=== PATIENT | female | born 1965 | race Caucasian/White ===

== ENCOUNTER 2019-03-19 13:05 | Emergency (ER) | payer OTHER ==
[2019-03-19 14:54] LABS: Absolute Lymphocytes (CBC) 1.4 K/uL (0.7-4.9); Basophils % 0.3 % (0-1.3); Eosinophils % 4.1 % (0-4.4); Lymphocytes % 15.8 % (15.3-44.8); MPV 8.6 fL (7.6-11.3); Monocytes % 6.4 % (3.3-12.3); Protime INR 1.04; RBC Red Blood Cell Count 4.01 M/uL (3.86-4.86)
[2019-03-19 15:06] LABS: BUN Blood Urea Nitrogen 11 mg/dL (7-18); Bicarbonate 25 mmol/L (21-32); Glucose Level 94 mg/dL (74-106); Potassium 3.7 mmol/L (3.5-5.1); Sodium Level 139 mmol/L (136-145)
[2019-03-19] MEDS ORDERED: ONDANSETRON 4 MG/2 ML VIAL ONE (15:09)
[2019-03-19] MEDS ORDERED: FENTANYL CITR 100 MCG/2 ML ONE (15:09)
[2019-03-19] MEDS ORDERED: BUPIVACAINE 0.5% PF 10 ML VIAL ONE (15:52)
[2019-03-19] MEDS ORDERED: LIDOCAINE 1% 20 ML MDV ONE (15:53)
--- NOTE | 2019-03-19 16:05 | EDPHYS ---
Physician Documentation [facility] Name: Shawnee Nazario Age: 53 yrs Sex: Female : 1965 Arrival Date: 03/19/2019 Time: 13:10 Bed 13 Private MD: ED Physician Humphrey Crawford HPI: 03/19 14:18 This 53 yrs old Female presents to ER via Ambulatory with complaints of Boil. cp 14:20 The patient presents with an abscess of the abdomen, The patient presents with cp cellulitis of the abdomen. Onset: The symptoms/episode began/occurred 2 week(s) ago. Possible cause(s): spider bite. Associated signs and symptoms: Pertinent positives: discharge, Pertinent negatives: fever. 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 - Social history:: Smoking status: Patient uses tobacco products, smokes one-half pack cigarettes per day. - Ebola Screening: : No symptoms or risks identified at this time. ROS: 14:23 Eyes: Negative for injury, pain, redness, and discharge. cp 14:23 Constitutional: Negative for body aches, chills, fever, poor PO intake. 14:23 ENT: Negative for drainage from ear(s), ear pain, sore throat, difficulty swallowing, difficulty handling secretions. 14:23 Cardiovascular: Negative for chest pain. 14:23 Respiratory: Negative for cough, shortness of breath, wheezing. 14:23 Abdomen/GI: Positive for abdominal pain, Negative for vomiting, diarrhea, constipation. 14:23 Skin: Positive for abscess, cellulitis, of the abdomen. 14:23 Neuro: Negative for altered mental status, headache, weakness. 14:23 All other systems are negative. Exam: 14:30 Constitutional: The patient appears in no acute distress, alert, awake, non-toxic, well cp developed, well nourished, uncomfortable. 14:30 Head/Face: Normocephalic, atraumatic. cp 14:30 Eyes: Periorbital structures: appear normal, Conjunctiva: normal, no exudate, no injection, Sclera: no appreciated abnormality, Lids and lashes: appear normal, bilaterally. 14:30 ENT: External ear(s): are unremarkable, Nose: is normal, Mouth: Lips: moist, Oral mucosa: pink and intact, moist, Posterior pharynx: is normal, airway is patent. 14:30 Chest/axilla: Inspection: normal, Palpation: is normal, no crepitus, no tenderness. 14:30 Cardiovascular: Rate: normal, Rhythm: regular. 14:30 Respiratory: the patient does not display signs of respiratory distress, Respirations: normal, no use of accessory muscles, no retractions, no splinting, no tachypnea, labored breathing, is not present, Breath sounds: are clear throughout, no decreased breath sounds, no stridor, no wheezing. 14:30 Abdomen/GI: Bowel sounds: active, all quadrants, Palpation: soft, in all quadrants, moderate abdominal tenderness, in the left lower quadrant, rebound tenderness, is not appreciated, voluntary guarding, is elicited in the left lower quadrant. 14:30 Skin: abscess, that is moderate sized, of the left lower abdomen, cellulitis, that is moderate, well demarcated, on the lower abdomen, induration, that is mild is noted, located on the left lower abdomen. Vital Signs: 13:14 BP 110 / 77; Pulse 97; Resp 18 S; Temp 98.5(O); Pulse Ox 100% on R/A; Weight 79.38 kg aa5 (R); Height 5 ft. 7 in. (170.18 cm) (R); Pain 9/10; 15:00 BP 116 / 72; Pulse 79; Resp 16; Pulse Ox 96% ; bp 16:12 BP 124 / 67; Pulse 81; Resp 16; Pulse Ox 99% on R/A; aj 13:14 Body Mass Index 27.41 (79.38 kg, 170.18 cm) aa5 Procedures: 16:00 I \T\ D: Incision and drainage was performed for an abscess of the left lower abdomen cp Prepped with Betadine, Anesthetized with 8 ccs of 1% lidocaine w/o epi and 0.5% marcaine w/o epi. Incised with #11 blade. Drained moderate amount purulent fluid. bloody fluid. Packed with iodoform gauze, Dressing: sterile 4x4 gauze, the patient tolerated the procedure well. MDM: 14:23 Patient medically screened. cp 15:00 Differential diagnosis: abscess, cellulitis, sepsis. cp 16:04 Data reviewed: vital signs, nurses notes, lab test result(s), and as a result, I will cp discharge patient. 16:04 Counseling: I had a detailed discussion with the patient and/or guardian regarding: the cp historical points, exam findings, and any diagnostic results supporting the discharge/admit diagnosis, radiology results, the need for outpatient follow up, a general surgeon, to return to the emergency department if symptoms worsen or persist or if there are any questions or concerns that arise at home. Response to treatment: the patient's symptoms have markedly improved after treatment, and as a result, I will discharge patient. 03/19 14:22 Order name: CBC with Diff; Complete Time: 15:37 cp 03/19 14:22 Order name: BMP; Complete Time: 15:37 cp 03/19 14:22 Order name: PT-INR; Complete Time: 15:37 cp 03/19 14:22 Order name: Procalcitonin; Complete Time: 15:37 cp 08 15:37 Interpretation: Reviewed. cp 03/19 14:22 Order name: Lactate; Complete Time: 15:37 cp 08 15:38 Interpretation: Reviewed. cp 03/19 16:01 Order name: Wound Culture bp 03/19 16:12 Order name: Urine Dipstick--Ancillary (enter results); Complete Time: 18:09 em1 03/19 16:12 Order name: Urine --Ancillary (enter results); Complete Time: 18:09 em1 03/19 14:22 Order name: Urine Dipstick-Ancillary (obtain specimen); Complete Time: 16:07 cp 03/19 14:22 Order name: Urine Test (obtain specimen); Complete Time: 16:07 cp 03/19 14:22 Order name: IV; Complete Time: 14:48 cp Administered Medications: 14:59 Drug: fentaNYL (PF) 25 mcg Route: IVP; Site: left antecubital; bp 16:41 Follow up: Response: Pain is decreased aj 14:59 Drug: Zofran 4 mg Route: IVP; Site: left antecubital; bp 16:41 Follow up: Response: Pain is decreased; Nausea is decreased aj 15:40 CANCELLED (Physician Discretion): Lidocaine (2 %) 1 mg Infiltration once; At IV or IO aj Insertion Site 16:01 Drug: Lidocaine (1 %) 10 mg Volume: 20 ml; Route: Infiltration; aj 16:01 Drug: Marcaine (0.5 %) 10 mg Volume: 10 ml; Route: Infiltration; aj 16:23 Drug: Clindamycin 900 mg Route: IM; Site: left gluteus; aj 16:41 Follow up: Response: No adverse reaction aj 16:23 Drug: Bactrim (160 mg-800 mg (DS) 1 tablet Route: PO; aj 16:41 Follow up: Response: No adverse reaction aj Disposition: 18:58 Co-signature as Attending Physician, Humphrey Crawford MD Available for consultation at ps1 all times . Disposition: 03/19/19 16:05 Discharged to Home. Impression: Cellulitis of abdominal wall, Cutaneous abscess of abdominal wall - left lower. - Condition is Stable. - Discharge Instructions: Skin Abscess, Cellulitis, Adult, Incision and Drainage. - Prescriptions for Clindamycin HCl 300 mg Oral Capsule - take 1 capsule by ORAL route every 6 hours for 10 days; 40 capsule. Tylenol- Codeine #3 300-30 mg Oral Tablet - take 2 tablets by ORAL route every 6 hours As needed; 20 tablet. Bactrim DS 800- 160 mg Oral Tablet - take 1 tablet by ORAL route every 12 hours for 10 days; 20 tablet. - Medication Reconciliation Form, Thank You Letter, Antibiotic Education, Prescription Opioid Use form. - Follow up: Pop Arroyo MD; When: 1 - 2 days; Reason: Wound Recheck. - Problem is new. - Symptoms have improved. Signatures: Dispatcher [employer] Mari Menjivar RN RN aj Calderon, Audri RN RN aa5 Danny Dennis PA PA cp Peltier, Brian, RN RN bp Singer, Phillip, MD MD ps1 Corrections: (The following items were deleted from the chart) 15:40 15:40 Lidocaine (2 %) 1 mg Infiltration once; At IV or IO Insertion Site ordered. aj aj 16:43 16:05 03/19/2019 16:05 Discharged to Home. Impression: Cellulitis of abdominal wall; aj Cutaneous abscess of abdominal wall - left lower. Condition is Stable. Forms are Medication Reconciliation Form, Thank You Letter, Antibiotic Education, Prescription Opioid Use. Follow up: Pop Arroyo; When: 1 - 2 days; Reason: Wound Recheck. Problem is new. Symptoms have improved. cp 03/20 15:00 03/19 14:00 I \T\ D: Incision and drainage was performed for an abscess of the left lower cp abdomen Prepped with Betadine, Anesthetized with 8 ccs of 50/50 mixture 1% lidocaine w/o epi and 0.5% marcaine. Incised with #11 blade. Drained moderate amount purulent fluid. bloody fluid. Cultures obtained. Packed with iodoform gauze, Dressing: sterile 4x4 gauze, the patient tolerated the procedure well, cp
--- NOTE | 2019-03-19 16:05 | ER ---
Nurse's Notes [facility] Name: Shawnee Nazario Age: 53 yrs Sex: Female : 1965 Arrival Date: 03/19/2019 Time: 13:10 Bed 13 Private MD: Diagnosis: Cellulitis of abdominal wall;Cutaneous abscess of abdominal wall-left lower Presentation: 03/19 13:13 Presenting complaint: Patient states: "I have some spider bites on my abdomen and I let aa5 it get too bad now". Pt c/o redness to lower abdomen, reports bites occurred 2 weeks ago. Transition of care: patient was not received from another setting of care. Onset of symptoms was 2018. Risk Assessment: Do you want to hurt yourself or someone else? Patient reports no desire to harm self or others. Initial Sepsis Screen: Does the patient meet any 2 criteria? No. Patient's initial sepsis screen is negative. Does the patient have a suspected source of infection? No. Patient's initial sepsis screen is negative. Care prior to arrival: None. 13:13 Method Of Arrival: Ambulatory aa5 13:13 Acuity: PAUL 3 aa5 Triage Assessment: 14:15 General: Appears in no apparent distress. comfortable, Behavior is cooperative, bp appropriate for age, anxious. 14:15 Pain: Complains of pain in abdomen. EENT: No deficits noted. Neuro: No deficits noted. bp Cardiovascular: No deficits noted. Respiratory: No deficits noted. GI: No signs and/or symptoms were reported involving the gastrointestinal system. : No signs and/or symptoms were reported regarding the genitourinary system. Derm: Abscess located on abdomen. Musculoskeletal: No deficits noted. 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 - Social history:: Smoking status: Patient uses tobacco products, smokes one-half pack cigarettes per day. - Ebola Screening: : No symptoms or risks identified at this time. Screenin:16 Abuse screen: Denies threats or abuse. Denies injuries from another. Nutritional bp screening: No deficits noted. Tuberculosis screening: No symptoms or risk factors identified. Fall Risk None identified. Assessment: 14:16 General: SEE TRIAGE NOTE. bp 16:12 Reassessment: No changes from previously documented assessment. aj Vital Signs: 13:14 BP 110 / 77; Pulse 97; Resp 18 S; Temp 98.5(O); Pulse Ox 100% on R/A; Weight 79.38 kg aa5 (R); Height 5 ft. 7 in. (170.18 cm) (R); Pain 9/10; 15:00 BP 116 / 72; Pulse 79; Resp 16; Pulse Ox 96% ; bp 16:12 BP 124 / 67; Pulse 81; Resp 16; Pulse Ox 99% on R/A; aj 13:14 Body Mass Index 27.41 (79.38 kg, 170.18 cm) aa5 ED Course: 13:10 Patient arrived in ED. rg4 13:13 Arm band placed on. aa5 13:14 Triage completed. aa5 14:05 Dale Garcia, VENKAT is Primary Nurse. bp 14:10 Danny Dennis PA is PHCP. cp 14:10 Humphrey Crawford MD is Attending Physician. cp 14:16 Patient has correct armband on for positive identification. Bed in low position. Call bp light in reach. Side rails up X2. 14:30 Inserted saline lock: 22 gauge in left antecubital area, using aseptic technique. Blood bp collected. 16:04 Pop Arroyo MD is Referral Physician. cp 16:42 No provider procedures requiring assistance completed. IV discontinued, intact, aj bleeding controlled, No redness/swelling at site. Pressure dressing applied. Administered Medications: 14:59 Drug: fentaNYL (PF) 25 mcg Route: IVP; Site: left antecubital; bp 16:41 Follow up: Response: Pain is decreased aj 14:59 Drug: Zofran 4 mg Route: IVP; Site: left antecubital; bp 16:41 Follow up: Response: Pain is decreased; Nausea is decreased aj 15:40 CANCELLED (Physician Discretion): Lidocaine (2 %) 1 mg Infiltration once; At IV or IO aj Insertion Site 16:01 Drug: Lidocaine (1 %) 10 mg Volume: 20 ml; Route: Infiltration; aj 16:01 Drug: Marcaine (0.5 %) 10 mg Volume: 10 ml; Route: Infiltration; aj 16:23 Drug: Clindamycin 900 mg Route: IM; Site: left gluteus; aj 16:41 Follow up: Response: No adverse reaction aj 16:23 Drug: Bactrim (160 mg-800 mg (DS) 1 tablet Route: PO; aj 16:41 Follow up: Response: No adverse reaction aj Outcome: 16:05 Discharge ordered by . cindi 16:42 Discharged to home ambulatory. aj 16:42 Condition: good 16:42 Discharge instructions given to patient, Instructed on discharge instructions, follow up and referral plans. medication usage, Demonstrated understanding of instructions, follow-up care, medications, Prescriptions given X 3. 16:43 Patient left the ED. aj Signatures: Mari Andrade, RN RN Denice Garza, RN RN aa5 Danny Dennis PA PA cp Garcia, Rubi rg4 Dale Garcia RN RN bp
[2019-03-19] MEDS ORDERED: SMZ./TMP. 800/160 MG TABLET ONE (16:33)
[2019-03-19] MEDS ORDERED: CLINDAMYCIN IV 150 MG/ML (4 mL) VIAL ONE (16:34)
[2019-03-19 17:21] LABS: Urine Blood NEGATIVE (NEG); Urine Glucose NEGATIVE (NEG); Urine Protein TRACE (NEG); Urine Specific Gravity >1.030 (1.005-1.030); Urine pH 5.5 (5.0-7.0)
[2019-03-19 18:03] VITALS: TEMP 98.5
[2019-03-19 18:05] VITALS: BP 124/67; O2SAT 99
== END 2019-03-19 16:43 | disposition home or self-care (01) ==
LOC: ER 13:05
PROC: 0J980ZZ Drainage of Abdomen Subcutaneous Tissue and Fascia, Open Approach (ICD-10-PCS; principal; 2019-03-19)
DX: L02.211 Cutaneous abscess of abdominal wall (principal); L03.311 Cellulitis of abdominal wall; F41.9 Anxiety disorder, unspecified; F31.9 Bipolar disorder, unspecified; F32.9 Major depressive disorder, single episode, unspecified; F17.210 Nicotine dependence, cigarettes, uncomplicated; Z88.0 Allergy status to penicillin
CPT/HCPCS: 36415; 80048; 81003; 81025; 83605; 84145; 85025; 85610; 87070; 87077; 87186; 87205; 96372; 96374; 96375; 99284; J2405; J3010; S0077

== ENCOUNTER 2020-02-07 09:16 | Emergency (ER) | payer OTHER ==
--- OUTSIDE RECORDS SUMMARY | 2020-02-07 10:29 | XMS REPORT ---
:1965 Author Organization [facility] t Address [address] [place] [address] Care Team Providers Name Role Phone Unavailable Unavailable Unavailable Problems This patient has no known problems. Allergies, Adverse Reactions, Alerts This patient has no known allergies or adverse reactions. Medications This patient has no known medications. Procedures This patient has no known procedures. Results This patient has no known results.
[2020-02-07] MEDS ORDERED: LIDOCAINE 1% MPF 2 ML AMPULE ONE (10:41)
[2020-02-07] MEDS ORDERED: AZITHROMYCIN 250 MG TAB ONE (10:41)
[2020-02-07] MEDS ORDERED: FLUCONAZOLE 100 MG TAB ONE (10:41)
[2020-02-07] MEDS ORDERED: CEFTRIAXONE 250 MG/VIAL ONE (10:41)
[2020-02-07 11:07] LABS: Urine Blood NEGATIVE (NEG); Urine Glucose NEGATIVE (NEG); Urine Protein NEGATIVE (NEG); Urine Specific Gravity >1.030 (1.005-1.030)
[2020-02-07 11:33] VITALS: BP 148/88; TEMP 97.9; O2SAT 100
--- NOTE | 2020-02-11 15:44 | ER ---
Nurse's Notes [facility] Name: Shawnee Nazario Age: 54 yrs Sex: Female : 1965 Arrival Date: 02/07/2020 Time: 09:19 Bed 8 Private MD: Dino Mandujano E Diagnosis: Acute suppurative otitis media;Vaginitis, vulvitis and vulvovaginitis in diseases classified elsewhere Presentation: 02/06 09:41 Chief complaint: Right ear pain x 2 days. Also c/o vaginal itching + increased hb discharge x 4 days. Coronavirus screen: Proceed with normal triage. Ebola Screen: No symptoms or risks identified at this time. Initial Sepsis Screen: Does the patient meet any 2 criteria? No. Patient's initial sepsis screen is negative. Does the patient have a suspected source of infection? No. Patient's initial sepsis screen is negative. Risk Assessment: Do you want to hurt yourself or someone else? Patient reports no desire to harm self or others. Onset of symptoms was February 03, 2020. 09:41 Method Of Arrival: Ambulatory hb 09:41 Acuity: PAUL 4 hb Historical: - Allergies: 09:44 Amoxicillin; hb 09:44 PENICILLINS; hb - Home Meds: 09:44 hydrocodone-acetaminophen 10-325 mg Oral tab 1 tab every 4 hours [Active]; Paxil Oral hb [Active]; - PMHx: 09:44 Bipolar disorder; Depression; insomnia; PTSD; Anxiety; hb - PSHx: 09:44 ; hb - Immunization history:: Adult Immunizations up to date. - Social history:: Smoking status: Patient reports the use of cigarette tobacco products, smokes one-half pack cigarettes per day. Screenin:16 Abuse screen: Denies threats or abuse. Denies injuries from another. Nutritional sv screening: No deficits noted. Tuberculosis screening: No symptoms or risk factors identified. Fall Risk None identified. Assessment: 10:45 General: Appears in no apparent distress. comfortable, well developed, Behavior is sv calm, cooperative, appropriate for age. Pain: Complains of pain in right ear. Neuro: Level of Consciousness is awake, alert, obeys commands, Oriented to person, place, time, situation, Moves all extremities. Full function Gait is steady. Respiratory: Airway is patent Respiratory effort is even, unlabored, Respiratory pattern is regular, symmetrical. : Reports discharge, vaginal itching. EENT: Reports pain in right ear. Derm: Skin is pink, warm \T\ dry. 11:00 Reassessment: Patient appears in no apparent distress at this time. No changes from sv previously documented assessment. Patient and/or family updated on plan of care and expected duration. Pain level reassessed. Patient is alert, oriented x 3, equal unlabored respirations, skin warm/dry/pink. Vital Signs: 09:41 BP 148 / 88; Pulse 86; Resp 16; Temp 97.9; Pulse Ox 100% on R/A; Weight 86.18 kg; hb Height 5 ft. 7 in. (170.18 cm); Pain 2/10; 09:41 Body Mass Index 29.76 (86.18 kg, 170.18 cm) hb ED Course: 09:19 Patient arrived in ED. mr 09:19 Dino Mandujano MD is Private Physician. mr 09:43 Triage completed. hb 09:44 Arm band placed on. hb 10:08 Shanti King RN is Primary Nurse. sv 10:08 Anjel Hussein PA is PHCP. jr8 10:08 Kevin Roth MD is Attending Physician. jr8 10:16 Patient has correct armband on for positive identification. Bed in low position. Call sv light in reach. Door closed. Head of bed elevated. 10:41 Dino Mandujano MD is Referral Physician. jr8 10:50 Urine collected: clean catch specimen, cloudy. sv 10:51 No provider procedures requiring assistance completed. Patient did not have IV access sv during this emergency room visit. Administered Medications: 10:40 Drug: Rocephin (cefTRIAXone) 250 mg Route: IM; Site: right gluteus; sv 11:00 Follow up: Response: No adverse reaction sv 10:40 Drug: Zithromax 1 grams Route: PO; sv 11:00 Follow up: Response: No adverse reaction sv 10:40 Drug: DiFLUcan 150 mg Route: PO; sv 11:00 Follow up: Response: No adverse reaction sv Outcome: 10:42 Discharge ordered by . jr8 11:00 Patient left the ED. sv 11:00 Discharged to home ambulatory. sv 11:00 Condition: stable 11:00 Discharge instructions given to patient, Instructed on discharge instructions, follow up and referral plans. medication usage, Demonstrated understanding of instructions, follow-up care, medications, Prescriptions given X 1. Signatures: Shanti King RN Kinjal Paulson Josh, PA PA jr8 Rosalee Hassan RN RN Corrections: (The following items were deleted from the chart) 11:42 11:24 Patient left the ED. sv
--- NOTE | 2020-02-11 15:44 | EDPHYS ---
Physician Documentation [facility] Name: Shawnee Nazario Age: 54 yrs Sex: Female : 1965 Arrival Date: 02/07/2020 Time: 09:19 Bed 8 Private MD: Dino Mandujano E ED Physician Kevin Roth HPI: 02/06 10:28 This 54 yrs old Female presents to ER via Ambulatory with complaints of Ear jr8 Pain/Vaginal discharge. 10:28 Patient stated that she has had a couple days of ear pain. Took Abx from her friend nick that has helped. Stated that for the past couple of days has also had vaginal discharge with some mild itching. Sexually active . Severity of symptoms: At their worst the symptoms were mild in the emergency department the symptoms are unchanged. The patient has not experienced similar symptoms in the past. The patient has not recently seen a physician. Historical: - Allergies: 09:44 Amoxicillin; hb 09:44 PENICILLINS; hb - Home Meds: 09:44 hydrocodone-acetaminophen 10-325 mg Oral tab 1 tab every 4 hours [Active]; Paxil Oral hb [Active]; - PMHx: 09:44 Bipolar disorder; Depression; insomnia; PTSD; Anxiety; hb - PSHx: 09:44 ; hb - Immunization history:: Adult Immunizations up to date. - Social history:: Smoking status: Patient reports the use of cigarette tobacco products, smokes one-half pack cigarettes per day. ROS: 10:39 Eyes: Negative for injury, pain, redness, and discharge, Neck: Negative for injury, jr8 pain, and swelling, Cardiovascular: Negative for chest pain, palpitations, and edema, Respiratory: Negative for shortness of breath, cough, wheezing, and pleuritic chest pain, Abdomen/GI: Negative for abdominal pain, nausea, vomiting, diarrhea, and constipation, Back: Negative for injury and pain, MS/Extremity: Negative for injury and deformity, Skin: Negative for injury, rash, and discoloration, Neuro: Negative for headache, weakness, numbness, tingling, and seizure. 10:39 ENT: Positive for ear pain. 10:39 : Positive for vaginal discharge, vaginal itching. Exam: 10:39 Head/Face: Normocephalic, atraumatic. Eyes: Pupils equal round and reactive to light, jr8 extra-ocular motions intact. Lids and lashes normal. Conjunctiva and sclera are non-icteric and not injected. Cornea within normal limits. Periorbital areas with no swelling, redness, or edema. Neck: Trachea midline, no thyromegaly or masses palpated, and no cervical lymphadenopathy. Supple, full range of motion without nuchal rigidity, or vertebral point tenderness. No Meningismus. Cardiovascular: Regular rate and rhythm with a normal S1 and S2. No gallops, murmurs, or rubs. Normal PMI, no JVD. No pulse deficits. Respiratory: Lungs have equal breath sounds bilaterally, clear to auscultation and percussion. No rales, rhonchi or wheezes noted. No increased work of breathing, no retractions or nasal flaring. Abdomen/GI: Soft, non-tender, with normal bowel sounds. No distension or tympany. No guarding or rebound. No evidence of tenderness throughout. Back: No spinal tenderness. No costovertebral tenderness. Full range of motion. Skin: Warm, dry with normal turgor. Normal color with no rashes, no lesions, and no evidence of cellulitis. MS/ Extremity: Pulses equal, no cyanosis. Neurovascular intact. Full, normal range of motion. Neuro: Awake and alert, GCS 15, oriented to person, place, time, and situation. Cranial nerves II-XII grossly intact. Motor strength 5/5 in all extremities. Sensory grossly intact. Cerebellar exam normal. Normal gait. 10:39 ENT: External ear(s): are unremarkable, Ear canal(s): are normal, clear, TM's: dullness, on the right, erythema, that is mild, on the right, Examination of the other ear shows no obvious abnormality, Nose: External nose: no obvious acute abnormality, Nasal septum: is midline, Nasal mucosa: normal, Turbinates: are normal, Examination of the other nostril shows no obvious abnormality, Mouth: Lips: moist, Oral mucosa: pink and intact, moist, Gums: pink, Tongue: is moist, Posterior pharynx: Airway: patent, Tonsils: are normal in appearance, Uvula: midline, non-edematous, no erythema, swelling, is not appreciated, erythema, is not appreciated. Vital Signs: 09:41 BP 148 / 88; Pulse 86; Resp 16; Temp 97.9; Pulse Ox 100% on R/A; Weight 86.18 kg; hb Height 5 ft. 7 in. (170.18 cm); Pain 2; 09:41 Body Mass Index 29.76 (86.18 kg, 170.18 cm) hb MDM: 10:08 Patient medically screened. jr8 10:39 Data reviewed: vital signs, nurses notes, lab test result(s). Data interpreted: Pulse jr8 oximetry: on room air is 100 %. Interpretation: normal. Counseling: I had a detailed discussion with the patient and/or guardian regarding: the historical points, exam findings, and any diagnostic results supporting the discharge/admit diagnosis, lab results, the need for outpatient follow up, a family practitioner, to return to the emergency department if symptoms worsen or persist or if there are any questions or concerns that arise at home. 02/06 10:53 Order name: Urine Dipstick--Ancillary (enter results); Complete Time: 16:22 bd 02/06 10:27 Order name: Urine Dipstick-Ancillary (obtain specimen); Complete Time: 10:50 jr8 Administered Medications: 10:40 Drug: Rocephin (cefTRIAXone) 250 mg Route: IM; Site: right gluteus; sv 11:00 Follow up: Response: No adverse reaction sv 10:40 Drug: Zithromax 1 grams Route: PO; sv 11:00 Follow up: Response: No adverse reaction sv 10:40 Drug: DiFLUcan 150 mg Route: PO; sv 11:00 Follow up: Response: No adverse reaction sv Disposition: 02/07/20 10:42 Discharged to Home. Impression: Acute suppurative otitis media, Vaginitis, vulvitis and vulvovaginitis in diseases classified elsewhere. - Condition is Stable. - Discharge Instructions: Otitis Media, Adult, Vaginitis. - Prescriptions for Bactrim DS 800- 160 mg Oral Tablet - take 1 tablet by ORAL route every 12 hours for 7 days; 14 tablet. - Medication Reconciliation Form, Thank You Letter, Antibiotic Education, Prescription Opioid Use form. - Follow up: Dino Mandujano MD; When: 5 - 6 days; Reason: Recheck today's complaints, Continuance of care, Re-evaluation by your physician. - Problem is new. - Symptoms have improved. Addendum: 02/09/2020 07:50 Co-signature as Attending Physician, Kevin Roth MD I agree with the assessment and k dr plan of care. Signatures: Dispatcher [employer] Shanti Olson, RN RN Kevin Wagner MD MD [facility] Anjel Hussein PA PA jr8 Rosalee Hassan RN RN Corrections: (The following items were deleted from the chart) 02/06 11:24 10:42 02/07/2020 10:42 Discharged to Home. Impression: Acute suppurative otitis media; sv Vaginitis, vulvitis and vulvovaginitis in diseases classified elsewhere. Condition is Stable. Forms are Medication Reconciliation Form, Thank You Letter, Antibiotic Education, Prescription Opioid Use. Follow up: Dino Mandujano; When: 5 - 6 days; Reason: Recheck today's complaints, Continuance of care, Re-evaluation by your physician. Problem is new. Symptoms have improved. jr8
[2020-02-13 14:39] LABS: C.trachomatis RNA,TMA Not Detected (Not Detected)
== END 2020-02-07 11:24 | disposition home or self-care (01) ==
LOC: ER 09:16
DX: H66.001 Acute suppurative otitis media without spontaneous rupture of ear drum, right ear (principal); N77.1 Vaginitis, vulvitis and vulvovaginitis in diseases classified elsewhere; F31.9 Bipolar disorder, unspecified; Z88.0 Allergy status to penicillin; Z88.1 Allergy status to other antibiotic agents; F17.210 Nicotine dependence, cigarettes, uncomplicated
CPT/HCPCS: 81003; 96372; 99283; J2001; J0696; 87070

== ENCOUNTER 2020-06-25 10:34 | Emergency (ER) | payer OTHER ==
--- OUTSIDE RECORDS SUMMARY | 2020-06-25 10:37 | XMS REPORT | Continuity of Care Document ---
:1965 Author Organization [facility] t Address [address] [place] [id number] Care Team Providers Name Role Phone Unavailable Unavailable Unavailable Problems This patient has no known problems. Allergies, Adverse Reactions, Alerts This patient has no known allergies or adverse reactions. Medications This patient has no known medications. Procedures This patient has no known procedures. Results This patient has no known results.
--- OUTSIDE RECORDS SUMMARY | 2020-06-25 10:43 | XMS REPORT | Continuity of Care Document ---
:1965 Author Organization [facility] t Address [address] [place] [id number] Care Team Providers Name Role Phone Unavailable Unavailable Unavailable Problems This patient has no known problems. Allergies, Adverse Reactions, Alerts This patient has no known allergies or adverse reactions. Medications This patient has no known medications. Procedures This patient has no known procedures. Results This patient has no known results.
[2020-06-25] MEDS ORDERED: KETOROLAC 30 MG/ML INJ ONE (11:48)
--- NOTE | 2020-06-25 12:04 | ER ---
Nurse's Notes [facility] Name: Shawnee Nazario Age: 54 yrs Sex: Female : 1965 Arrival Date: 06/25/2020 Time: 10:43 Bed 17 Private MD: Diagnosis: Low back pain;Lateral epicondylitis, right elbow Presentation: 06/25 10:46 Chief complaint: Right elbow and low back pain after she rolled off bed onto carpet 2 hb days ago. Coronavirus screen: At this time, the client does not indicate any symptoms associated with coronavirus-19. Ebola Screen: No symptoms or risks identified at this time. Initial Sepsis Screen: Does the patient meet any 2 criteria? No. Patient's initial sepsis screen is negative. Does the patient have a suspected source of infection? No. Patient's initial sepsis screen is negative. Risk Assessment: Do you want to hurt yourself or someone else? Patient reports no desire to harm self or others. Onset of symptoms was June 23, 2020. 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 - Social history:: Smoking status: Patient reports the use of cigarette tobacco products, smokes one-half pack cigarettes per day. Screenin:04 Abuse screen: Denies threats or abuse. Denies injuries from another. Nutritional hb screening: No deficits noted. Tuberculosis screening: No symptoms or risk factors identified. Fall Risk None identified. Assessment: 11:30 General: Appears in no apparent distress. uncomfortable, Behavior is calm, cooperative, em appropriate for age, Denies fever. Pain: Complains of pain in lumbar area and right elbow Pain currently is 6 out of 10 on a pain scale. Pain began 2-3 days ago. Neuro: Level of Consciousness is awake, alert, obeys commands, Oriented to person, place, time, situation, Appropriate for age Oral Hygienist are equal bilaterally Moves all extremities. Gait is steady, Speech is normal, Facial symmetry appears normal. Cardiovascular: Capillary refill < 3 seconds Patient's skin is warm and dry. Respiratory: Airway is patent Respiratory effort is even, unlabored, Respiratory pattern is regular, symmetrical. Derm: Skin is intact, is healthy with good turgor, Skin is pink, warm \T\ dry. Musculoskeletal: Capillary refill < 3 seconds, Range of motion: intact in all extremities. Vital Signs: 10:46 BP 119 / 79; Pulse 80; Resp 16; Temp 98.1; Pulse Ox 100% on R/A; Weight 90.72 kg; hb Height 5 ft. 7 in. (170.18 cm); Pain 6/10; 10:46 Body Mass Index 31.32 (90.72 kg, 170.18 cm) hb ED Course: 10:43 Patient arrived in ED. ds1 10:43 Kevin Roth MD is Attending Physician. kdr 10:46 Jose Johnson, RN is Primary Nurse. em 11:01 Triage completed. hb 11:02 Arm band placed on. hb 11:08 Anjel Hussein PA is PHCP. jr8 12:11 No provider procedures requiring assistance completed. Patient did not have IV access ss during this emergency room visit. Administered Medications: 11:44 Drug: TORadol 60 mg Route: IM; Site: left gluteus; em Outcome: 12:04 Discharge ordered by . jr8 12:11 Discharged to home ambulatory, with family. ss 12:11 Condition: good 12:11 Discharge instructions given to patient, family, Instructed on discharge instructions, follow up and referral plans. medication usage, Demonstrated understanding of instructions, follow-up care, medications, Prescriptions given X 3. 12:11 Patient left the ED. ss Signatures: Kevin Roth MD MD [facility] Jose Johnson, VENKAT RN Sarah Sarah ds1 Diana Farrell RN RN Anjel Hussein PA PA jr8 Rosalee Hassan RN RN hb
--- NOTE | 2020-06-25 12:04 | EDPHYS ---
Physician Documentation [facility] Name: Shawnee Nazario Age: 54 yrs Sex: Female : 1965 Arrival Date: 06/25/2020 Time: 10:43 Bed 17 Private MD: ED Physician Kevin Roth HPI: 06/25 13:09 This 54 yrs old Female presents to ER via Ambulatory with complaints of Fall jr8 Injury Back Pain. 13:09 Patient stated that she fell out of bed landing on back and right elbow. Has had pain jr8 since then which is not relieved by OTC medications . Onset: The symptoms/episode began/occurred acutely, 2 day(s) ago. Severity of symptoms: At their worst the symptoms were mild in the emergency department the symptoms are unchanged. The patient has not experienced similar symptoms in the past. The patient has not recently seen a physician. 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 - Social history:: Smoking status: Patient reports the use of cigarette tobacco products, smokes one-half pack cigarettes per day. ROS: 13:09 Eyes: Negative for injury, pain, redness, and discharge, ENT: Negative for injury, jr8 pain, and discharge, Neck: Negative for injury, pain, and swelling, Cardiovascular: Negative for chest pain, palpitations, and edema, Respiratory: Negative for shortness of breath, cough, wheezing, and pleuritic chest pain, Abdomen/GI: Negative for abdominal pain, nausea, vomiting, diarrhea, and constipation, Skin: Negative for injury, rash, and discoloration, Neuro: Negative for headache, weakness, numbness, tingling, and seizure. 13:09 Back: Positive for pain at rest, pain with movement, Negative for radiated pain. 13:09 MS/extremity: Positive for pain, tenderness, of the right elbow. Exam: 13:09 Eyes: Pupils equal round and reactive to light, extra-ocular motions intact. Lids and jr8 lashes normal. Conjunctiva and sclera are non-icteric and not injected. Cornea within normal limits. Periorbital areas with no swelling, redness, or edema. ENT: Nares patent. No nasal discharge, no septal abnormalities noted. Tympanic membranes are normal and external auditory canals are clear. Oropharynx with no redness, swelling, or masses, exudates, or evidence of obstruction, uvula midline. Mucous membranes moist. Neck: Trachea midline, no thyromegaly or masses palpated, and no cervical lymphadenopathy. Supple, full range of motion without nuchal rigidity, or vertebral point tenderness. No Meningismus. Cardiovascular: Regular rate and rhythm with a normal S1 and S2. No gallops, murmurs, or rubs. Normal PMI, no JVD. No pulse deficits. Respiratory: Lungs have equal breath sounds bilaterally, clear to auscultation and percussion. No rales, rhonchi or wheezes noted. No increased work of breathing, no retractions or nasal flaring. Abdomen/GI: Soft, non-tender, with normal bowel sounds. No distension or tympany. No guarding or rebound. No evidence of tenderness throughout. Skin: Warm, dry with normal turgor. Normal color with no rashes, no lesions, and no evidence of cellulitis. Neuro: Awake and alert, GCS 15, oriented to person, place, time, and situation. Cranial nerves II-XII grossly intact. Motor strength 5/5 in all extremities. Sensory grossly intact. Cerebellar exam normal. Normal gait. 13:09 Back: pain, that is moderate, of the left low back, ROM is painful, normal spinal alignment noted, CVA tenderness, is absent, vertebral tenderness, is not appreciated. 13:09 Musculoskeletal/extremity: Extremities: grossly normal except: noted in the right elbow: pain, tenderness, ROM: intact in all extremities, full active range of motion, full passive range of motion, limited active range of motion due to pain, limited passive range of motion due to pain, Circulation is intact in all extremities. Sensation intact. Patient with point tenderness over the lateral epicondyle region of arm . Vital Signs: 10:46 BP 119 / 79; Pulse 80; Resp 16; Temp 98.1; Pulse Ox 100% on R/A; Weight 90.72 kg; hb Height 5 ft. 7 in. (170.18 cm); Pain 6/10; 10:46 Body Mass Index 31.32 (90.72 kg, 170.18 cm) hb MDM: 11:35 Patient medically screened. jr8 12:03 Data reviewed: vital signs, nurses notes, and as a result, I will discharge patient. jr8 Data interpreted: Pulse oximetry: on room air is 100 %. Interpretation: normal. Counseling: I had a detailed discussion with the patient and/or guardian regarding: the historical points, exam findings, and any diagnostic results supporting the discharge/admit diagnosis, the need for outpatient follow up, a family practitioner, to return to the emergency department if symptoms worsen or persist or if there are any questions or concerns that arise at home. Response to treatment: the patient's symptoms have mildly improved after treatment. 06/25 11:33 Order name: Urine Dipstick--Ancillary (enter results) bd 06/25 11:34 Order name: Urine Dipstick-Ancillary; Complete Time: 13:12 EDMS Administered Medications: 11:44 Drug: TORadol 60 mg Route: IM; Site: left gluteus; em Disposition: 14:45 Co-signature as Attending Physician, Kevin Roth MD I agree with the assessment and kdr plan of care. Disposition: 06/25/20 12:04 Discharged to Home. Impression: Low back pain, Lateral epicondylitis, right elbow. - Condition is Stable. - Discharge Instructions: Back Pain, Adult, Tennis Elbow, Musculoskeletal Pain, Heat Therapy. - Prescriptions for Robaxin 500 mg Oral Tablet - take 2 tablet by ORAL route every 6 hours As needed; 40 tablet. Tylenol- Codeine #3 300-30 mg Oral Tablet - take 2 tablets by ORAL route every 6 hours As needed; 20 tablet. Medrol (Howie) 4 mg Oral Tablets, Dose Pack - take 1 tablet by ORAL route as directed - follow package instructions; 1 packet. - Medication Reconciliation Form, Thank You Letter, Antibiotic Education, Prescription Opioid Use form. - Follow up: Private Physician; When: 2 - 3 days; Reason: Recheck today's complaints, Continuance of care, Re-evaluation by your physician. - Problem is new. - Symptoms have improved. Signatures: Dispatcher [employer] Kevin Tamez MD MD [facility] Jose Johnson, RN RN em Diana Farrell RN RN ss Roszak, Josh, PA PA jr8 Rosalee Hassan RN RN Corrections: (The following items were deleted from the chart) 12:11 12:04 06/25/2020 12:04 Discharged to Home. Impression: Low back pain; Lateral ss epicondylitis, right elbow. Condition is Stable. Forms are Medication Reconciliation Form, Thank You Letter, Antibiotic Education, Prescription Opioid Use. Follow up: Private Physician; When: 2 - 3 days; Reason: Recheck today's complaints, Continuance of care, Re-evaluation by your physician. Problem is new. Symptoms have improved. jr8
[2020-06-25 12:05] LABS: Urine Blood NEGATIVE (NEG); Urine Glucose NEGATIVE (NEG); Urine Protein NEGATIVE (NEG); Urine Specific Gravity 1.025 (1.005-1.030)
[2020-06-25 12:32] VITALS: BP 119/79; TEMP 98.1; O2SAT 100
== END 2020-06-25 12:11 | disposition home or self-care (01) ==
LOC: ER 10:34
DX: M77.11 Lateral epicondylitis, right elbow (principal); F17.210 Nicotine dependence, cigarettes, uncomplicated; W06.XXXA Fall from bed, initial encounter; Y93.9 Activity, unspecified; Y92.9 Unspecified place or not applicable; F31.9 Bipolar disorder, unspecified; Z88.1 Allergy status to other antibiotic agents; Z88.0 Allergy status to penicillin
CPT/HCPCS: 81003; 96372; 99283

== ENCOUNTER 2020-12-04 13:46 | Emergency (ER) | payer OTHER ==
--- OUTSIDE RECORDS SUMMARY | 2020-12-04 13:50 | XMS REPORT | Continuity of Care Document ---
:1965 Author Organization [facility] t Address [address] [place] [address] Care Team Providers Name Role Phone Unavailable Unavailable Unavailable Problems This patient has no known problems. Allergies, Adverse Reactions, Alerts This patient has no known allergies or adverse reactions. Medications This patient has no known medications. Procedures This patient has no known procedures. Results This patient has no known results.
[2020-12-04] MEDS ORDERED: CYCLOBENZAPRINE 10 MG TAB ONE (16:31)
[2020-12-04] MEDS ORDERED: HYDROCODONE/APAP 7.5/325 MG TAB ONE (16:32)
--- NOTE | 2020-12-04 16:55 | RAD REPORT ---
EXAM DESCRIPTION: CT - Spine Lumbar Wo Con - 12/04/2020 4:27 pm CLINICAL HISTORY: Pain;Lower back pain COMPARISON: None. TECHNIQUE: Thin section axial imaging of the lumbar spine was performed. Sagittal and coronal recon struction images were generated and reviewed. All CT scans are performed using dose optimization technique as appropriate and may include automated exposure control or mA/KV adjustment according to patient size. FINDINGS: CT bodies are normal in height and normal in AP alignment. There is a right convex mild sc oliotic curvature in a very slight right lateral subluxation of L3 relative to L2 and L4. No patholog ic bone process seen. No paraspinal soft tissue mass identified. T12-L1 level: No significant finding L1-2 level: No significant finding L2-3 level: Circumferential bulging of disc material is present more prominent in the left exit anna en and in the far lateral extraforaminal space. No central spinal stenosis or significant foraminal s tenosis. Facet degenerative changes minimal. L3-4 level: Circumferential bulging of disc material prominent in the left exit foramen and far later al extraforaminal space. No central spinal stenosis. Left foraminal stenosis is mild. Facet degenerat thiago changes are mild. L4-5 level: Disc space is narrowed with significant amount of degenerative gas in the disc space. Cir cumferential bulging of disc material is present slightly worse in the left exit foramen. No central spinal stenosis or significant foraminal encroachment. Facet degenerative change present. L5-S1 level: Degenerative gas in the disc space with loss in disc height. Disc bulge changes are pres ent in each exit foramen. Right foraminal stenosis is present. No central spinal stenosis. A 3.4 centimeter round low-density mass midportion of the right kidney is almost certainly an inciden allyssa cyst. IMPRESSION: No compression fracture or other emergent CT lumbar spine finding. Lumbar spondylosis changes are present with L5-S1 right foraminal stenosis and mild left L3-4 foramin al stenosis.
--- NOTE | 2020-12-04 16:58 | RAD REPORT ---
EXAM DESCRIPTION: CT - Pelvis Wo Cont - 12/04/2020 4:28 pm CLINICAL HISTORY: left buttock pain COMPARISON: Spine Lumbar Wo Con dated 12/04/2020 TECHNIQUE: Axial noncontrast 2 millimeter thick images the pelvis were obtained. No oral contrast ad ministered. Sagittal and coronal reformatted images were generated and reviewed. The CT scan was performed using dose optimization techniques as appropriate to a performed exam incl uding one or more of the following: Automated exposure control, adjustment of the mA and/or kV accord ing to patient size (this includes techniques or standardized protocols for targeted exams where dose is matched to indication/reason for exam) and use of iterative reconstruction technique. FINDINGS: Lower lumbar degenerative changes are reported in the CT lumbar spine report. SI joint deg enerative changes are mild. No fracture or pathologic change to the bony pelvis. No joint effusion or measurable degenerative change at either hip joint. No periarticular hip joint abnormality. Skeletal musculature is unremarkable. No hematoma, mass or suspicious finding identifiable. Imaged bowel loops show no suspicious findings. Uterus, ovaries and bladder also without suspicious f inding. No ascites, lymphadenopathy or suspicious pelvic soft tissue process. IMPRESSION: Noncontrast CT pelvis examination shows no significant or suspicious finding.
[2020-12-04 17:06] LABS: Urine Blood NEGATIVE (Negative); Urine Glucose NEGATIVE (Negative); Urine Protein NEGATIVE (NEG); Urine pH 5.5 (5.0-7.0)
--- NOTE | 2020-12-04 17:43 | RAD REPORT ---
EXAM DESCRIPTION: RAD - Hand Right 3 View - 12/04/2020 5:10 pm CLINICAL HISTORY: PAIN COMPARISON: No comparisons FINDINGS: No fracture is identified. There is no dislocation or periosteal reaction noted. No joint space narrowing, spurring or erosive change. No destructive bone process seen. Cystic changes are pre sent in the ulna styloid without cortical disruption or other evidence for pathologic change. IMPRESSION: Negative right hand examination acute finding.
--- NOTE | 2020-12-04 17:44 | RAD REPORT ---
EXAM DESCRIPTION: RAD - Forearm Right - 12/04/2020 5:10 pm CLINICAL HISTORY: PAIN COMPARISON: No comparisons FINDINGS: No fracture is identified. There is no dislocation or periosteal reaction noted. No joint space narrowing. No spurring or erosive changes identified. No elevated fat pad at the elbow joint. C ystic changes in the ulna styloid are not believed to be pathologic. No foreign body or other soft tissue abnormality. IMPRESSION: Negative right forearm examination for acute or significant finding.
--- NOTE | 2020-12-04 17:47 | RAD REPORT ---
EXAM DESCRIPTION: RAD - Hand Left 3 View - 12/04/2020 5:10 pm CLINICAL HISTORY: PAIN COMPARISON: None. FINDINGS: No fracture, dislocation or periosteal reaction noted. No joint space narrowing, spurring or erosive change. No foreign body or other soft tissue abnormality. IMPRESSION: Negative left hand examination.
--- NOTE | 2020-12-04 17:48 | RAD REPORT ---
EXAM DESCRIPTION: RAD - Forearm Left - 12/04/2020 5:10 pm CLINICAL HISTORY: PAIN COMPARISON: None. FINDINGS: No fracture is identified. There is no dislocation or periosteal reaction noted. No joint space narrowing, spurring or erosive change. No elbow joint effusion seen. No foreign body or other soft tissue abnormality. IMPRESSION: Negative left forearm examination.
--- NOTE | 2020-12-04 18:03 | EDPHYS ---
Physician Documentation [facility] Name: Shawnee Nazario Age: 55 yrs Sex: Female : 1965 Arrival Date: 12/04/2020 Time: 13:51 Bed 14 Private MD: ED Physician Kevin Roth HPI: 12/04 16:10 This 55 yrs old Female presents to ER via Ambulatory with complaints of Back cp Pain, Pain In feet. 16:10 The patient presents with pain that is chronic, with no known mechanism of injury. cp 16:10 The symptoms are located in the low back. Onset: The symptoms/episode began/occurred 1 cp year(s) ago, and became worse 6 month(s) ago. The pain radiates to the right foot, left foot, right leg and left leg. 16:10 Patient reports low back pain increased after fall from standing last night when she cp landed more onto left side. 16:10 Associated signs and symptoms: Pertinent positives: bilateral forearm and bilateral cp hand pain, Pertinent negatives: abdominal pain, constipation, dysuria, fever, incontinence, numbness, tingling, urinary retention, weakness, saddle anesthesia. 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 - Social history:: Smoking status: Patient reports the use of cigarette tobacco products, smokes one-half pack cigarettes per day. ROS: 16:20 Constitutional: Negative for body aches, chills, fever, poor PO intake. cp 16:20 Eyes: Negative for injury, pain, redness, and discharge. cp 16:20 ENT: Negative for ear pain, sore throat, difficulty swallowing, difficulty handling secretions. 16:20 Cardiovascular: Negative for chest pain, edema, palpitations. 16:20 Respiratory: Negative for cough, shortness of breath, wheezing. 16:20 Abdomen/GI: Negative for abdominal pain, nausea, vomiting, and diarrhea, bowel incontinence. 16:20 Back: Positive for pain at rest, pain with movement, of the lumbar area and left low back. 16:20 MS/extremity: Positive for pain, of the right hand, left hand, right foot, left foot, right leg and left leg, right forearm and left forearm, Negative for paresthesias. 16:20 Skin: Negative for rash. 16:20 Neuro: Negative for altered mental status, headache, numbness, tingling, weakness. 16:20 All other systems are negative. Exam: 16:25 Constitutional: The patient appears in no acute distress, alert, awake, non-toxic, well cp developed, well nourished. 16:25 Head/Face: Normocephalic, atraumatic. cp 16:25 Eyes: Periorbital structures: appear normal, Conjunctiva: normal, no exudate, no injection, Lids and lashes: appear normal, bilaterally. 16:25 Neck: ROM/movement: is normal, is supple, without pain, no range of motions limitations. 16:25 Chest/axilla: Inspection: normal. 16:25 Cardiovascular: Rate: normal, Rhythm: regular. 16:25 Respiratory: the patient does not display signs of respiratory distress, Respirations: normal, no use of accessory muscles, no retractions, labored breathing, is not present. 16:25 Abdomen/GI: Exam negative for discomfort, distension, guarding, Inspection: abdomen appears normal. 16:25 Back: pain, that is moderate, of the lumbar area and left low back, ROM is painful, with all movement, Straight leg raises: of both lower extremities does not illicit pain. 16:25 Musculoskeletal/extremity: Extremities: grossly normal except: noted in the right forearm, left forearm, right hand and left hand: pain, tenderness, There is no evidence of decreased ROM, swelling, ROM: full active range of motion, in the right hand, left hand, right arm and left arm, Pulses: noted to be 2+ in the right radial artery and left radial artery, the right hand, left hand, right foot, left foot, right arm, left arm, right leg and left leg Sensation intact. 16:25 Neuro: Motor: moves all fours, strength is normal, Sensation: is normal, Deep tendon reflexes are 2+ (normal) in the right patellar, right Achilles, left patellar and left Achilles. Vital Signs: 14:28 BP 105 / 66; Pulse 86; Resp 16 S; Temp 97.2(TE); Pulse Ox 100% on R/A; Weight 87.54 kg ca1 (R); Height 5 ft. 7 in. (170.18 cm) (R); Pain 7/10; 17:10 BP 110 / 86; Pulse 68; Resp 16 S; Pulse Ox 97% on R/A; jd3 18:21 BP 102 / 82; Pulse 60; Resp 16 S; Pulse Ox 97% on R/A; jd3 14:28 Body Mass Index 30.23 (87.54 kg, 170.18 cm) ca1 MDM: 15:55 Patient medically screened. cp 17:00 Differential diagnosis: chronic back pain, vertebral fracture, sciatica, cauda equina, cp spinal stenosis. 17:17 ED course: review of [place] prescription monitor website shows narcotic score of 190, cp sedative score of 180 and overdose risk score of 400. Last prescription for narcotic meds was 07-08-2020 for Tylenol #3, #15 given. 18:00 Data reviewed: vital signs, nurses notes, lab test result(s), radiologic studies, CT cp scan, and as a result, I will discharge patient. 18:02 Counseling: I had a detailed discussion with the patient and/or guardian regarding: the cp historical points, exam findings, and any diagnostic results supporting the discharge/admit diagnosis, radiology results, the need for outpatient follow up, for definitive care, a family practitioner, a paint trimmer pipe bowls, to return to the emergency department if symptoms worsen or persist or if there are any questions or concerns that arise at home. 18:02 Response to treatment: VSS. Pain markedly improved. Discussed results of radiology cp studies negative for acute trauma. Will discharge to home for continued monitoring. 12/04 16:59 Order name: Urine Dipstick--Ancillary (enter results) em1 12/04 16:06 Order name: CT Lumbar Spine Wo Con; Complete Time: 17:09 cp 12/04 16:06 Order name: CT Pelvis wo Cont; Complete Time: 17:09 cp 12/04 16:06 Order name: XRAY Forearm LEFT; Complete Time: 17:50 cp 12/04 17:50 Interpretation: Report reviewed. 12/04 16:06 Order name: XRAY Forearm RIGHT; Complete Time: 17:50 cp 12/04 17:50 Interpretation: Reviewed. 12/04 16:06 Order name: XRAY Hand LEFT 3 View; Complete Time: 17:55 cp 12/04 17:55 Interpretation: Report reviewed. cp 12/04 16:06 Order name: Urine Dipstick-Ancillary (obtain specimen); Complete Time: 16:55 cp 12/04 16:06 Order name: XRAY Hand RIGHT 3 View; Complete Time: 17:50 cp 12/04 17:55 Interpretation: Report reviewed. cp Administered Medications: 16:13 Drug: Hydrocodone-Acetaminophen (7.5 mg-325 mg) 1 tabs Route: PO; rb3 16:55 Follow up: Response: No adverse reaction; Pain is decreased rb3 16:13 Drug: Flexeril (cyclobenzaprine) 10 mg Route: PO; rb3 16:56 Follow up: Response: No adverse reaction rb3 Disposition: 12/05 07:25 Co-signature as Attending Physician, Kevin Roth MD I agree with the assessment and kdr plan of care. Disposition: 12/04/20 18:03 Discharged to Home. Impression: Low back pain, Radiculopathy, lumbar region, Pain in forearm - bilateral, Pain in hand and fingers - bilateral. - Condition is Stable. - Discharge Instructions: Chronic Back Pain, Musculoskeletal Pain, Back Exercises. - Prescriptions for Mobic 7.5 mg Oral Tablet - take 1 tablet by ORAL route once daily take with food; 20 tablet. Tylenol- Codeine #3 300-30 mg Oral Tablet - take 2 tablets by ORAL route every 8-12 hours As needed; 15 tablet. Cyclobenzaprine 10 mg Oral Tablet - take 1 tablet by ORAL route every 8 hours As needed; 20 tablet. - Medication Reconciliation Form, Thank You Letter, Antibiotic Education, Prescription Opioid Use form. - Follow up: Aniceto Cooper DO; When: 2 - 3 days; Reason: chronic low back pain. Follow up: Private Physician; When: 2 - 3 days; Reason: Recheck today's complaints. - Problem is an ongoing problem. - Symptoms have improved. Signatures: Dispatcher [employer] EDKevin Cardenas MD MD kdr Page, Corey, PA PA cp Davies, Jonathon, RN RN jd3 Galnia Prieto RN RN ca1 Barber, Rebecca RN RN rb3 Corrections: (The following items were deleted from the chart) 12/04 16:40 16:06 Urine Test ordered. cp jd3 18:10 18:03 12/04/2020 18:03 Discharged to Home. Impression: Low back pain; Radiculopathy, cp lumbar region; Pain in forearm. Condition is Stable. Forms are Medication Reconciliation Form, Thank You Letter, Antibiotic Education, Prescription Opioid Use. Follow up: Aniceto Cooper; When: 2 - 3 days; Reason: chronic low back pain. Follow up: Private Physician; When: 2 - 3 days; Reason: Recheck today's complaints. Problem is an ongoing problem. Symptoms have improved. cp 18:24 18:10 12/04/2020 18:03 Discharged to Home. Impression: Low back pain; Radiculopathy, jd3 lumbar region; Pain in forearm - bilateral; Pain in hand and fingers - bilateral. Condition is Stable. Forms are Medication Reconciliation Form, Thank You Letter, Antibiotic Education, Prescription Opioid Use. Follow up: Ancieto Cooper; When: 2 - 3 days; Reason: chronic low back pain. Follow up: Private Physician; When: 2 - 3 days; Reason: Recheck today's complaints. Problem is an ongoing problem. Symptoms have improved. cp
--- NOTE | 2020-12-04 18:03 | ER ---
Nurse's Notes [facility] Name: Shawnee Nazario Age: 55 yrs Sex: Female : 1965 Arrival Date: 12/04/2020 Time: 13:51 Bed 14 Private MD: Diagnosis: Low back pain;Radiculopathy, lumbar region;Pain in forearm-bilateral;Pain in hand and fingers-bilateral Presentation: 12/04 14:28 Chief complaint: Patient states: esther feet pain, mainly the bottom, been going on for ca1 about a year. But it has gotten worse for the last 6 months. The pain shoots up to the legs. Also have low back pain with an arthritic back and the pain also shoots down to my legs. Last night, lost my balance and fell on my left side, and now am hurting on my lower L back. I also have pains on my forearms, I think I have arthritis on my forearms. And I got bursitis and am hurting right there too. HX of arthritis and Hep C. Coronavirus screen: Client denies travel out of the [place] in the last 14 days. At this time, the client does not indicate any symptoms associated with coronavirus-19. Ebola Screen: Patient negative for fever greater than or equal to 101.5 degrees Fahrenheit, and additional compatible Ebola Virus Disease symptoms Patient denies exposure to infectious person. Patient denies travel to an Ebola-affected area in the 21 days before illness onset. No symptoms or risks identified at this time. Initial Sepsis Screen: Does the patient meet any 2 criteria? No. Patient's initial sepsis screen is negative. Does the patient have a suspected source of infection? No. Patient's initial sepsis screen is negative. Risk Assessment: Do you want to hurt yourself or someone else? Patient reports no desire to harm self or others. Onset of symptoms was December 04, 2020. 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 - Social history:: Smoking status: Patient reports the use of cigarette tobacco products, smokes one-half pack cigarettes per day. Screenin:59 Abuse screen: Denies threats or abuse. Nutritional screening: No deficits noted. rb3 Tuberculosis screening: No symptoms or risk factors identified. Fall Risk Fall in past 12 months (25 points). No secondary diagnosis (0 pts). No IV (0 pts). Ambulatory Aid- None/Bed Rest/Nurse Assist (0 pts). Gait- Normal/Bed Rest/Wheelchair (0 pts) Mental Status- Oriented to own ability (0 pts). Total Live Fall Scale indicates Low Risk Score (25-44 pts). Fall prevention measures have been instituted. Side Rails Up X 2 Placed close to Nursing Station 1:1 attendant Assigned to Pt. Frequent Obs/Assesments occuring As available Patient and Family Educated on Fall Prevention Program and strategies. Assessment: 15:59 General: Appears in no apparent distress. Behavior is calm, cooperative. Pain: rb3 Complains of pain in low back, bilateral feet, arms, and legs. Neuro: Level of Consciousness is awake, alert, obeys commands, Oriented to person, place, time, situation. Cardiovascular: Patient's skin is warm and dry. Respiratory: Airway is patent Respiratory effort is even, unlabored, Respiratory pattern is regular, symmetrical. GI: No signs and/or symptoms were reported involving the gastrointestinal system. : No signs and/or symptoms were reported regarding the genitourinary system. Musculoskeletal: Range of motion: intact in all extremities. 16:18 Reassessment: Pt. went to CT. rb3 17:09 Reassessment: Patient appears in no apparent distress at this time. Patient and/or jd3 family updated on plan of care and expected duration. Pain level reassessed. Patient is alert, oriented x 3, equal unlabored respirations, skin warm/dry/pink. awaiting results. pt resting in bed. 18:20 Reassessment: Patient appears in no apparent distress at this time. Patient and/or jd3 family updated on plan of care and expected duration. Pain level reassessed. Patient is alert, oriented x 3, equal unlabored respirations, skin warm/dry/pink. pt reporting pain was more tolerable. reported understanding of discharge instructions, even and steady gait upon discharge. Patient states feeling better. Vital Signs: 14:28 BP 105 / 66; Pulse 86; Resp 16 S; Temp 97.2(TE); Pulse Ox 100% on R/A; Weight 87.54 kg ca1 (R); Height 5 ft. 7 in. (170.18 cm) (R); Pain 7/10; 17:10 BP 110 / 86; Pulse 68; Resp 16 S; Pulse Ox 97% on R/A; jd3 18:21 BP 102 / 82; Pulse 60; Resp 16 S; Pulse Ox 97% on R/A; jd3 14:28 Body Mass Index 30.23 (87.54 kg, 170.18 cm) ca1 ED Course: 13:51 Patient arrived in ED. ds1 14:33 Triage completed. ca1 14:33 Arm band placed on right wrist. ca1 15:48 Danny Dennis PA is PHCP. cp 15:48 Kevin Roth MD is Attending Physician. cp 15:59 Patient has correct armband on for positive identification. Bed in low position. Call rb3 light in reach. Side rails up X 1. Pulse ox on. NIBP on. 16:25 Shayne Coleman, RN is Primary Nurse. jd3 16:27 CT Lumbar Spine Wo Con In Process Unspecified. EDMS 16:27 CT Pelvis wo Cont In Process Unspecified. EDMS 17:10 XRAY Forearm LEFT In Process Unspecified. EDMS 17:10 XRAY Forearm RIGHT In Process Unspecified. EDMS 17:10 XRAY Hand LEFT 3 View In Process Unspecified. EDMS 17:10 XRAY Hand RIGHT 3 View In Process Unspecified. EDMS 18:01 Aniceto Cooper DO is Referral Physician. cp 18:22 No provider procedures requiring assistance completed. Patient did not have IV access jd3 during this emergency room visit. Administered Medications: 16:13 Drug: Hydrocodone-Acetaminophen (7.5 mg-325 mg) 1 tabs Route: PO; rb3 16:55 Follow up: Response: No adverse reaction; Pain is decreased rb3 16:13 Drug: Flexeril (cyclobenzaprine) 10 mg Route: PO; rb3 16:56 Follow up: Response: No adverse reaction rb3 Outcome: 18:03 Discharge ordered by . cp 18:22 Discharged to home ambulatory, with family. jd3 18:22 Condition: stable 18:22 Discharge instructions given to patient, Instructed on discharge instructions, follow up and referral plans. medication usage, Demonstrated understanding of instructions, follow-up care, medications, Prescriptions given X 3. 18:24 Patient left the ED. jd3 Signatures: Dispatcher [employer] EDOK Sarah Sarah ds1 Danny Dennis PA PA cp Davies, Jonathon, RN RN jd3 Galina Prieto RN RN ca1 Jessica Fleming RN RN rb3
[2020-12-04 20:23] VITALS: TEMP 97.2
[2020-12-04 20:25] VITALS: O2SAT 97
[2020-12-04 20:26] VITALS: BP 102/82
== END 2020-12-04 18:24 | disposition home or self-care (01) ==
LOC: ER 13:46
DX: M54.16 Radiculopathy, lumbar region (principal); M79.632 Pain in left forearm; M79.631 Pain in right forearm; M79.642 Pain in left hand; M79.641 Pain in right hand; M79.645 Pain in left finger(s); M79.644 Pain in right finger(s); F31.9 Bipolar disorder, unspecified; F17.210 Nicotine dependence, cigarettes, uncomplicated; W18.30XA Fall on same level, unspecified, initial encounter; Y93.9 Activity, unspecified; Y92.9 Unspecified place or not applicable; Z88.0 Allergy status to penicillin; Z88.1 Allergy status to other antibiotic agents
CPT/HCPCS: 72131; 72192; 81003; 99284

== ENCOUNTER 2021-05-06 14:03 | Emergency (ER) | payer OTHER ==
--- OUTSIDE RECORDS SUMMARY | 2021-05-06 14:05 | XMS REPORT | Continuity of Care Document ---
:1965 Author Organization [facility] t Address [address] [place] [address] [address] [place] [address] Care Team Providers Name Role Phone Unavailable Unavailable Unavailable Problems This patient has no known problems. Allergies, Adverse Reactions, Alerts This patient has no known allergies or adverse reactions. Medications This patient has no known medications. Procedures This patient has no known procedures. Results This patient has no known results.
--- NOTE | 2021-05-06 14:53 | RAD REPORT ---
EXAM DESCRIPTION: CT - CTHCSPWOC - 05/06/2021 2:40 pm CLINICAL HISTORY: Trauma, head and neck injury. PAIN COMPARISON: Thoracic Spine W/o Cont dated 05/06/2021 TECHNIQUE: Axial 5 mm thick images of the head were obtained. Axial 2 mm thick images of the cervical spine were obtained with sagittal and coronal reconstruction images generated and reviewed. All CT scans are performed using dose optimization technique as appropriate and may include automated exposure control or mA/KV adjustment according to patient size. FINDINGS: CT HEAD WITHOUT CONTRAST: No acute hemorrhage, hydrocephalus or extra-axial collection is identified.No areas of brain edema or midline shift. The paranasal sinuses and mastoids are clear.The calvarium is intact. CT CERVICAL SPINE WITHOUT CONTRAST: No fracture or subluxation.No prevertebral soft tissues swelling is identified. IMPRESSION: No acute intracranial or cervical spine findings.
--- NOTE | 2021-05-06 14:56 | RAD REPORT ---
EXAM DESCRIPTION: CT - CTFB CLINICAL HISTORY: FACIAL PAIN Trauma, facial pain and swelling COMPARISON: No comparisons TECHNIQUE: Axial 2 mm thick images of the face were obtained with sagittal and coronal reconstructio n images. All CT scans are performed using dose optimization technique as appropriate and may include automated exposure control or mA/KV adjustment according to patient size. FINDINGS: No acute facial bone fracture is seen.The mandible is intact. The globes and orbital contents are grossly unremarkable.Mild ethmoid sinus thickening. The paranasal sinuses and mastoids are otherwise clear. IMPRESSION: Negative for facial bone fracture.
--- NOTE | 2021-05-06 15:00 | RAD REPORT ---
EXAM DESCRIPTION: CT - Thoracic Spine W/o Cont - 05/06/2021 2:40 pm CLINICAL HISTORY: Radiculopathy. PAIN COMPARISON: No comparisons TECHNIQUE: Axial CT imaging through the thoracic spine was performed with coronal and sagittal re-fo rmatted images. All CT scans are performed using dose optimization technique as appropriate and may include automated exposure control or mA/KV adjustment according to patient size. FINDINGS: Vertebral body heights and disc spaces are maintained. A compression fracture is not prese nt. Mild disc thinning is present lower thoracic spine. Thoracic spine alignment is within normal limits. No paraspinal masses or hematoma. IMPRESSION: No acute thoracic spine abnormality.
--- NOTE | 2021-05-06 15:40 | EDPHYS ---
Physician Documentation [facility] Name: Shawnee Nazario Age: 55 yrs Sex: Female : 1965 Arrival Date: 05/06/2021 Time: 14:06 Bed Waiting Private MD: CHUCK Physician Danny Cheema HPI: 05/06 16:38 This 55 yrs old Female presents to ER via Wheelchair with complaints of Fall kb Injury, Facial Injury, Neck Pain, <24hrs Old. 16:38 Details of fall: The patient fell from an upright position, while walking. Onset: The kb symptoms/episode began/occurred this morning. Associated injuries: The patient sustained injury to the head, pain, neck injury, pain, pain with movement, upper back injury, pain, pain with movement. Severity of symptoms: At their worst the symptoms were moderate, in the emergency department the symptoms are unchanged. The patient has not experienced similar symptoms in the past. The patient has not recently seen a physician. Pt reports she tripped in the kitchen at 0300 and fell face first onto carpet. denies loc. Reports she felt a pop in her neck. Historical: - Allergies: 14:14 Amoxicillin; sv 14:14 PENICILLINS; sv - PMHx: 14:14 Anxiety; Bipolar disorder; Depression; insomnia; PTSD; sv - Immunization history:: Client reports receiving the 2nd dose of the Covid vaccine, Client reports receiving the 1st dose of the Covid vaccine. - Social history:: Smoking status: Patient reports the use of cigarette tobacco products, denies chronic smoking, but will smoke occasionally. ROS: 16:37 Constitutional: Negative for fever, chills, and weight loss. kb 16:37 Neck: Positive for pain with movement, pain at rest, tenderness. 16:37 Back: Positive for pain at rest, pain with movement. 16:37 Neuro: Positive for headache. 16:37 All other systems are negative. Exam: 16:29 Constitutional: This is a well developed, well nourished patient who is awake, alert, kb and in no acute distress. Cardiovascular: Regular rate and rhythm with a normal S1 and S2. No gallops, murmurs, or rubs. No pulse deficits. Respiratory: Respirations even and unlabored. No increased work of breathing, no retractions or nasal flaring. Abdomen/GI: Soft, non-tender. No distention MS/ Extremity: Pulses equal, no cyanosis. Neurovascular intact. Full, normal range of motion. Neuro: Awake and alert, GCS 15, oriented to person, place, time, and situation. Moves all extremities. Normal gait. Psych: Awake, alert, with orientation to person, place and time. Behavior, mood, and affect are within normal limits. 16:29 Head/face: Noted is no obvious of injury or deformity except contusion, that is superficial, of the left cheek. 16:29 Neck: C-spine: C-collar placed in ED, vertebral tenderness, that is mild, diffusely. 16:29 Back: pain, that is mild, of the thoracic area. 16:29 Skin: injury, contusion(s), that are superficial, of the left cheek. Vital Signs: 14:15 BP 113 / 59; Pulse 68; Resp 18; Pulse Ox 96% ; Weight 79.38 kg; Height 5 ft. 7 in. sv (170.18 cm); Pain 6/10; 14:15 Body Mass Index 27.41 (79.38 kg, 170.18 cm) sv [place] Coma Score: 14:15 Eye Response: spontaneous(4). Verbal Response: oriented(5). Motor Response: obeys sv commands(6). Total: 15. Trauma Score (Adult): 14:15 Eye Response: spontaneous(1); Verbal Response: oriented(1); Motor Response: obeys sv commands(2); Systolic BP: > 89 mm Hg(4); Respiratory Rate: 10 to 29 per min(4); Khadra Score: 15; Trauma Score: 12 MDM: 14:22 Patient medically screened. kb 15:38 Data reviewed: vital signs, nurses notes. Data interpreted: Pulse oximetry: on room air kb is 96 %. Interpretation: normal. Counseling: I had a detailed discussion with the patient and/or guardian regarding: the historical points, exam findings, and any diagnostic results supporting the discharge/admit diagnosis, radiology results, the need for outpatient follow up, a family practitioner, to return to the emergency department if symptoms worsen or persist or if there are any questions or concerns that arise at home. 05/06 14:23 Order name: CT Head C Spine; Complete Time: 14:55 kb 05/06 14:23 Order name: CT Facial Bones W/O Con; Complete Time: 14:58 kb 05/06 14:23 Order name: CT Thoracic Spine Wo Cont; Complete Time: 15:28 kb Administered Medications: 15:57 Drug: [place] (HYDROcodone-acetaminophen) 10 mg-325 mg 1 tabs {Note: rass1.} Route: PO; sv 15:58 Follow up: Response: Medication administered at discharge. sv 15:57 Drug: Ketorolac 30 mg Route: IM; Site: left deltoid; sv 15:58 Follow up: Response: Medication administered at discharge. sv Disposition: 05/07 14:48 Co-signature as Attending Physician, Danny Cheema MD I agree with the assessment and walter plan of care. Disposition Summary: 05/06/21 15:40 Discharge Ordered Location: Home kb Condition: Stable kb Diagnosis - Fall on same level from slipping, tripping and stumbling without subsequent kb striking against object - Cervicalgia kb - Pain in thoracic spine kb - Contusion of left cheek kb - Headache kb Followup: kb - With: Emergency Department - When: As needed - Reason: Worsening of condition Followup: kb - With: Private Physician - When: 2 - 3 days - Reason: Recheck today's complaints, Continuance of care, Re-evaluation by your physician Discharge Instructions: - Discharge Summary Sheet kb - Musculoskeletal Pain kb - Head Injury, Adult, [id number] kb Forms: - Medication Reconciliation Form kb - Thank You Letter kb - Antibiotic Education kb - Prescription Opioid Use kb Prescriptions: - Cyclobenzaprine 10 mg Oral Tablet - take 1 tablet by ORAL route every 8 hours As needed; 21 tablet; Refills: 0, kb Product Selection Permitted - Diclofenac Sodium 75 mg Oral tablet,delayed release (DR/EC) - take 1 tablet by ORAL route 2 times per day As needed; 30 tablet; Refills: 0, kb Product Selection Permitted Signatures: Dispatcher [employer] Mila Covarrubias, Shanti Corbett RN RN sv Anderson, Corey, MD MD [facility]
--- NOTE | 2021-05-06 15:40 | ER ---
Nurse's Notes [facility] Name: Shawnee Nazario Age: 55 yrs Sex: Female : 1965 Arrival Date: 05/06/2021 Time: 14:06 Bed Waiting Private MD: Diagnosis: Fall on same level from slipping, tripping and stumbling without subsequent striking against object;Cervicalgia;Pain in thoracic spine;Contusion of left cheek;Headache Presentation: 05/06 14:12 Chief complaint: Patient states: s/p fall today around 0300 after tripping on 1 step in sv her kitchen, hit the left side of her head, neck, and back pain. Care prior to arrival: None. 14:12 Acuity: PAUL 3 sv 14:12 Method Of Arrival: Wheelchair sv 14:12 Coronavirus screen: Client denies travel out of the [place] in the last 14 days. At this sv time, the client does not indicate any symptoms associated with coronavirus-19. Ebola Screen: No symptoms or risks identified at this time. Initial Sepsis Screen: Does the patient meet any 2 criteria? No. Patient's initial sepsis screen is negative. Does the patient have a suspected source of infection?. 14:14 Risk Assessment: Do you want to hurt yourself or someone else?. Onset of symptoms was sv May 06, 2021 at 03:00. Triage Assessment: 14:12 General: Appears in no apparent distress. uncomfortable, Behavior is cooperative, sv appropriate for age, restless. Pain: Complains of pain in face and thoracic area and left cheek and neck. Neuro: Level of Consciousness is awake, alert, obeys commands, Oriented to person, place, time, situation, Moves all extremities. Full function. Respiratory: Airway is patent Respiratory effort is even, unlabored, Respiratory pattern is regular, symmetrical. Injury Description: Abrasion sustained to left cheek. Trauma Activation: Not Applicable Physician: ED Physician; Name: ; Notified At: ; Arrived At: Physician: General Surgeon; Name: ; Notified At: ; Arrived At: Physician: Radiology; Name: ; Notified At: ; Arrived At: Physician: Respiratory; Name: ; Notified At: ; Arrived At: Physician: Lab; Name: ; Notified At: ; Arrived At: Historical: - Allergies: 14:14 Amoxicillin; sv 14:14 PENICILLINS; sv - PMHx: 14:14 Anxiety; Bipolar disorder; Depression; insomnia; PTSD; sv - Immunization history:: Client reports receiving the 2nd dose of the Covid vaccine, Client reports receiving the 1st dose of the Covid vaccine. - Social history:: Smoking status: Patient reports the use of cigarette tobacco products, denies chronic smoking, but will smoke occasionally. Screenin:58 Abuse screen: Denies threats or abuse. Denies injuries from another. Nutritional sv screening: No deficits noted. Tuberculosis screening: No symptoms or risk factors identified. Fall Risk None identified. Primary Survey: 14:12 NO uncontrolled hemorrhage observed. A: The patient is alert. Airway: patent, No sv supplemental oxygen in use on arrival. Oral cavity: clear. Breathing/Chest: Respiratory pattern: regular, Respiratory effort: spontaneous, unlabored, Chest inspection: symmetrical rise and fall of the chest. Circulation: Skin color: pink, Skin temperature: warm, dry. Disability Alert. Exposure/Environment: All clothing and personal items were removed. Forensic evidence collection is not deemed to be indicated at this time. Items placed in patient belonging bag. Assessment: 14:21 Reassessment: Mila LEON assessing pt. sv 15:51 Reassessment: Pt here in triage now at this time. sv 15:58 Reassessment: Patient appears in no apparent distress at this time. No changes from sv previously documented assessment. Patient and/or family updated on plan of care and expected duration. Pain level reassessed. Patient is alert, oriented x 3, equal unlabored respirations, skin warm/dry/pink. Vital Signs: 14:15 BP 113 / 59; Pulse 68; Resp 18; Pulse Ox 96% ; Weight 79.38 kg; Height 5 ft. 7 in. sv (170.18 cm); Pain 6/10; 14:15 Body Mass Index 27.41 (79.38 kg, 170.18 cm) sv Khadra Coma Score: 14:15 Eye Response: spontaneous(4). Verbal Response: oriented(5). Motor Response: obeys sv commands(6). Total: 15. Trauma Score (Adult): 14:15 Eye Response: spontaneous(1); Verbal Response: oriented(1); Motor Response: obeys sv commands(2); Systolic BP: > 89 mm Hg(4); Respiratory Rate: 10 to 29 per min(4); Khadra Score: 15; Trauma Score: 12 ED Course: 14:06 Patient arrived in ED. as 14:14 Triage completed. sv 14:14 Arm band placed on. sv 14:21 C-collar applied. sv 14:22 Mila Weinebrg FNP-C is PHCP. kb 14:22 Danny Cheema MD is Attending Physician. kb 14:40 CT Head C Spine In Process Unspecified. EDMS 14:40 CT Facial Bones W/O Con In Process Unspecified. EDMS 14:40 CT Thoracic Spine Wo Cont In Process Unspecified. EDMS 15:49 Patient's name was called from ER lobby. No response. sv 15:50 Shanti King, VENKAT is Primary Nurse. sv 15:58 Patient has correct armband on for positive identification. sv 15:58 No provider procedures requiring assistance completed. Patient did not have IV access sv during this emergency room visit. Administered Medications: 15:57 Drug: [place] (HYDROcodone-acetaminophen) 10 mg-325 mg 1 tabs {Note: rass1.} Route: PO; sv 15:58 Follow up: Response: Medication administered at discharge. sv 15:57 Drug: Ketorolac 30 mg Route: IM; Site: left deltoid; sv 15:58 Follow up: Response: Medication administered at discharge. sv Intake: 14:15 PO: 0ml; Total: 0ml. sv Output: 14:15 Urine: 0ml; Total: 0ml. sv Outcome: 15:40 Discharge ordered by MD. kb 15:58 Patient left the ED. sv 15:58 Discharged to home ambulatory. sv 15:58 Condition: stable 15:58 Discharge instructions given to patient, Instructed on discharge instructions, follow up and referral plans. medication usage, Demonstrated understanding of instructions, follow-up care, medications, Prescriptions given X 2. Signatures: Dispatcher [employer] EDMS Mila Weinberg FNP-C FNP-Shanti Manzo RN RN Maureen Chávez as
[2021-05-06 16:05] VITALS: BP 113/59; O2SAT 96
[2021-05-06] MEDS ORDERED: KETOROLAC 30 MG/ML INJ ONE (16:17)
[2021-05-06] MEDS ORDERED: HYDROCODONE/APAP 10/325 TAB ONE (16:17)
== END 2021-05-06 15:58 | disposition home or self-care (01) ==
LOC: ER 14:03
DX: S00.83XA Contusion of other part of head, initial encounter (principal); M54.2 Cervicalgia; M54.6 Pain in thoracic spine; W01.0XXA Fall on same level from slipping, tripping and stumbling without subsequent striking against object, initial encounter; Y93.01 Activity, walking, marching and hiking; Y92.000 Kitchen of unspecified non-institutional (private) residence as the place of occurrence of the external cause; F17.210 Nicotine dependence, cigarettes, uncomplicated; Z88.0 Allergy status to penicillin; Z88.1 Allergy status to other antibiotic agents
CPT/HCPCS: 70450; 70486; 72125; 72128; 76377; 96372; 99283

== ENCOUNTER 2021-11-07 14:13 | Emergency (ER) | payer OTHER ==
--- OUTSIDE RECORDS SUMMARY | 2021-11-07 14:16 | XMS REPORT | Continuity of Care Document ---
:1965 Author Organization [facility] t Address [address] [place] [address] Care Team Providers Name Role Phone Correction, Dept Of Primary Care Physician Doctor Unassigned, Name Attending Clinician Unavailable Payers Payer Name Policy Type Policy Number Effective Date Expiration Date S ource Problems This patient has no known problems. Allergies, Adverse Reactions, Alerts This patient has no known allergies or adverse reactions. Social History Social Habit Start Date Stop Date Quantity Comments Source Sex Assigned At [birth year] [facility] 00:00:00 00:00:00 [facility] Smoking Status Start Date Stop Date Source Unknown if ever smoked [facility] Medications This patient has no known medications. Procedures Procedure Date / Time Performed Performing Clinician [facility] e REFERRAL- 2021-09-21 06:01:00 Doctor Juni, No [facility] REQUEST/RESPONSE Name Medical Branch Encounters Start End Encounter Admission Attending Care Care Encounter Source Date/Time Date/Time Type Type Clinicians Facility Department ID 2021-09-21 2021-09-21 Orders Doctor GONZALEZ [id number] [facility] 00:00:00 00:00:00 Only Unassigned, ROMEO [id number] [facility] of [place] [facility] [id number] Maxi as [id number] [place] [id number] Branch Results Test Description Test Time Test Comments Results Result Comments Source HCV RNA, PCR QUANT 2021-09-28 18:52:50 Test Item Value Reference Range Interpretation Comme nts HCV RNA, PCR QUANT (test NOT DETEC IU/ML code = 4571) HCV VIRAL LOG (test code = NOT DETEC LOG IU/ML HCV RNA was not detected, 33246) indicating no c urrent HCV infection.React thiago HCV antibody result may be d ue to biologic false positive. In certain situations, fol low up HCV RNA testing may be indicated(suspected HCV exposure wi thin past 6 months or clinical godfrey dence ofHCV disease). Range of quantitation is 15-100,000,000 IU/mL, (1.176-8.000 logIU/mL). Samp les with HCV RNA detected below the limit ofquantitation are reported as <15 IU/mL. Assay m ethodology ispolymerase ch ain reaction (PCR) using the Hugh Jaime 6800/8800system . The expected range is NOT DE TECTED. UNLESS OTHERWIS E INDICATED, ALL TESTING PERFORM ED ATCLINICAL PATHOLOGY LABOR [facility] [address] [place] [address] LABORATORY DIRE CTOR: LAKIA VOSS M.D. CLIA NUMBER [id number] [facility] [place]. [id number] HEPATITIS C REFLEX [id number] 02:39:41 Test Item Value Reference Range Interpretation Comments HEPATITIS C ANTIBODY (test code = REACTIVE NON-REACTIVE A 5312)
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
[2021-11-07] MEDS ORDERED: KETOROLAC 30 MG/ML INJ ONE (14:40)
[2021-11-07 15:30] VITALS: TEMP 98.1; O2SAT 100
[2021-11-07 15:31] VITALS: BP 106/76
== END 2021-11-07 15:04 | disposition home or self-care (01) ==
LOC: ER 14:13
DX: S29.012A Strain of muscle and tendon of back wall of thorax, initial encounter (principal); V49.50XA Passenger injured in collision with unspecified motor vehicles in traffic accident, initial encounter; Z88.0 Allergy status to penicillin; Z88.1 Allergy status to other antibiotic agents; F17.210 Nicotine dependence, cigarettes, uncomplicated
CPT/HCPCS: 96372; 99283

== ENCOUNTER 2022-03-01 12:12 | Emergency (ER) | payer OTHER ==
--- OUTSIDE RECORDS SUMMARY | 2022-03-01 12:17 | XMS REPORT | Continuity of Care Document ---
:1965 Author Organization [facility] t Address [address] [place] [address] Care Team Providers Name Role Phone TAMRAAly Primary Care Physician Unavailable Dalia MCCLURE Attending Clinician Unavailable Aditya NEGRON, K.H. Attending Clinician Payers Payer Name Policy Type Policy Number Effective Date Expiration Date [facility] STAR [id number] 2021 00:00:00 PLUS Problems Condition Condition Condition Status Onset Resolution Last Treating Co mments Source Name Details Category Date Date Treatment Clinician Date No known No known Disease Unive rs active active ity of problems problems [facility] Allergies, Adverse Reactions, Alerts Allergy Allergy Status Severity Reaction(s) Onset Inactive Treating Comm ents Source Name Type Date Date Clinician Amoxicil Propensi Active Other - See 0 U nivers nikita ty to comments 01-08 ity of adverse 00:00: [place] reaction 00 Medical s Branch AMOXICIL DRUG Active Other-Cmnt Univ ers NIKITA INGREDI 01-08 ity of 00:00: [place] 00 Medical Branch Social History Social Habit Start Date Stop Date Quantity Comments Source Exposure to 2021-12-29 2022-01-08 Not sure [facility] SARS-CoV-2 (event) 00:00:00 13:16:00 Medica l Branch Sex Ass[birth year] At [birth year] [facility] 00:00:00 00:00:00 Medical Branch Smoking Status Start Date Stop Date Source Unknown if ever smoked [facility] Medications Ordered Filled Start Stop Current Ordering Indication Dosage Frequency Signature Comments Components Source Medication Medication Date Date Medication? Clinician (SIG) Name Name FLUoxetine Yes [id number] 20mg Take 20 mg Univers 20 mg 4-29 by mouth ity of capsule 13:27: daily. [address] ARIPiprazol Yes [id number] 5mg Take 5 mg Univers e (ABILIFY) 4-29 by mouth ity of 5 mg tablet 13:27: daily. Isaias arciniega [address] [place] [address] Vital Signs Vital Name Observation Time Observation Value Comments Source Systolic blood 2022-01-08 18:23:00 101 mm[Hg] [facility]iver [facility] of [facility] Diastolic blood 2022-01-08 18:23:00 68 mm[Hg] Unive rsity [facility] Heart rate 2022-01-08 18:23:00 73 /min [facility] Respiratory rate 2022-01-08 18:23:00 16 /min [facility] height 2022-01-08 18:23:[address] [facility] Body weight 2022-01-08 18:23:[address] [facility] BMI 2022-01-08 18:23:00 27.26 kg/m2 [facility] Oxygen saturation in 2022-01-08 18:23:00 93 /min [facility] Arterial blood by [facility] Pulse oximetry Branch Procedures This patient has no known procedures. Encounters Start End Encounter Admission Attending Care Care Encounter Source Date/Time Date/Time Type Type Clinicians Facility Department ID 2022-02-05 2022-02-05 Outpatient Gil MCCLURE [facility] [id number] Univers 15:00:00 15:00:00 SENDNAE means [facility] 2022-01-08 2022-01-08 Office Aditya OHNAYE [id number] Univers 13:00:00 13:57:19 Visit Em[facility]io [id number] [id number] Isaias arciniega FRANCOIS [id number] Ne dical NAL 9 Branch BUILDING 2022-01-08 2022-01-08 Outpatient Gil MCCLURE [facility] [id number] Univers 13:00:00 13:57:19 SENDIL kristi [facility] Results Test Description Test Time Test Comments Results Result Comments Source HCV RNA, PCR QUANT 2021-09-28 18:52:50 Test Item Value Reference Range Interpretation Comme nts HCV RNA, PCR QUANT (test NOT DETEC IU/ML code = 4571) HCV VIRAL LOG (test code = NOT DETEC LOG IU/ML HCV RNA was not detected, 31758) indicating no c urrent HCV infection.React thiago [...] INDICATED, ALL TESTING PERFORM ED ATCLINICAL PATHOLOGY [facility]LY [facility] [address] [place] [address] LABORATORY DIRE CTOR: LAKIA VOSS M.D. FORRESTIA NUMBER [id number] [place]. [id number] HEPATITIS C REFLEX [id number] 02:39:41 Test Item Value Reference Range Interpretation Comments HEPATITIS C ANTIBODY (test code = REACTIVE NON-REACTIVE A 4675)
--- NOTE | 2022-03-01 13:33 | RAD REPORT ---
EXAM DESCRIPTION: RAD - Shoulder Right 2 View - 03/01/2022 1:19 pm CLINICAL HISTORY: fall, shoulder pain COMPARISON: No comparisons FINDINGS/IMPRESSION: No acute fracture. No malalignment. Mild right AC joint degenerative changes.
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
--- NOTE | 2022-03-01 15:21 | EDPHYS ---
Physician Documentation [facility] Name: Shawnee Nazario Age: 56 yrs Sex: Female : 1965 Arrival Date: 03/01/2022 Time: 12:16 Bed DIS2 Private MD: ED Physician Danny Cheema HPI: 03/01 12:52 This 56 yrs old Female presents to ER via Ambulatory with complaints of Arm Pain - jmm right. 12:52 The patient or guardian complains of injury, pain. Onset: The symptoms/episode jmm began/occurred acutely, 3 day(s) ago. This is a 56 year old female with a history of bipolar, insomnia, ptsd, arthritis that presents to the ED with complaints of right shoulder pain beginning after a fall which occurred 3 days ago. Patient denies hitting her head, denies neck pain. Denies back pain. . 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 - Social history:: Smoking status: unknown. ROS: 12:52 Constitutional: Negative for fever, chills, and weight loss, Cardiovascular: Negative jmm for chest pain, palpitations, and edema, Respiratory: Negative for shortness of breath, cough, wheezing, and pleuritic chest pain. 12:52 Back: Negative for pain with movement. 12:52 MS/extremity: Positive for pain. 12:52 All other systems are negative. Exam: 12:52 Constitutional: This is a well developed, well nourished patient who is awake, alert, jmm and in no acute distress. Head/Face: atraumatic. Eyes: EOMI, no conjunctival erythema appreciated ENT: Moist Mucus Membranes Neck: Trachea midline, Supple Chest/axilla: Normal chest wall appearance and motion. Cardiovascular: Regular rate and rhythm. No edema appreciated Respiratory: Normal respirations, no respiratory distress appreciated Abdomen/GI: Non distended, soft Back: Normal ROM Skin: General appearance color normal 12:52 Musculoskeletal/extremity: right anterior shoulder ttp, from appreciated, full philosophy specialist strength, . 12:52 Skin: Appearance: Color: normal in color. 12:52 Neuro: Orientation: is normal, Mentation: is normal, Memory: is normal. 12:52 Psych: Behavior/mood is pleasant, cooperative. Vital Signs: 12:46 BP 112 / 69; Pulse 67; Resp 18 S; Temp 97.7(TE); Pulse Ox 100% on R/A; Weight 80.74 kg aa5 (R); Height 5 ft. 6 in. (167.64 cm) (R); 12:46 Body Mass Index 28.73 (80.74 kg, 167.64 cm) aa5 MDM: 12:52 Patient medically screened. [facility] 15:19 Data reviewed: vital signs, nurses notes. Counseling: I had a detailed discussion with mahogany the patient and/or guardian regarding: the historical points, exam findings, and any diagnostic results supporting the discharge/admit diagnosis, radiology results, the need for outpatient follow up, to return to the emergency department if symptoms worsen or persist or if there are any questions or concerns that arise at home. ED course: Xray negative for fracture. Patient advised to folllow up with ortho for further evaluation. patient understood and agrees with the plan of care. . 0620 12:52 Order name: Shoulder Right (2 View) XRAY; Complete Time: 13:35 [facility] Administered Medications: 16:02 Drug: Ketorolac 30 mg Route: IM; Site: left ventrogluteal; [facility] 16:05 Follow up: Response: No adverse reaction iw Disposition Summary: 03/01/22 15:20 Discharge Ordered Location: Home [facility] Condition: Stable [facility] Diagnosis - Strain of other muscles, fascia and tendons at shoulder and upper arm level, right [facility] arm Followup: [facility] - With: Francis Jorge MD - When: 2 - 3 days - Reason: Recheck today's complaints, Continuance of care, Re-evaluation by your physician Discharge Instructions: - Discharge Summary Sheet [facility] - Shoulder Sprain [facility] Forms: - Medication Reconciliation Form [facility] - Thank You Letter [facility] - Antibiotic Education [facility] - Prescription Opioid Use [facility] Prescriptions: - Diclofenac Sodium 75 mg Oral Tablet Sustained Release - take 1 tablet by ORAL route 2 times per day; 30 tablet; Refills: 0, Product [facility] Selection Permitted - orphenadrine citrate 100 mg Oral Tablet Sustained Release - take 1 tablet by ORAL route 2 times per day As needed; 20 tablet; Refills: 0, jmm Product Selection Permitted Signatures: Dispatcher [employer] Danny Oneal MD MD cha Mickail, Joel, PA PA jmm Williams, Irene, RN RN Denice Ramos RN RN aa5
[2022-03-01] MEDS ORDERED: KETOROLAC 30 MG/ML INJ ONE (16:03)
[2022-03-01 16:06] VITALS: BP 112/69; TEMP 97.7; O2SAT 100
== END 2022-03-01 16:02 | disposition home or self-care (01) ==
LOC: ER 12:12
DX: S46.811A Strain of other muscles, fascia and tendons at shoulder and upper arm level, right arm, initial encounter (principal); Z88.0 Allergy status to penicillin; Z88.1 Allergy status to other antibiotic agents
CPT/HCPCS: 96372; 99283

== ENCOUNTER 2025-01-09 20:24 | Emergency (ER) | payer OTHER ==
--- OUTSIDE RECORDS SUMMARY | 2025-01-09 20:34 | XMS REPORT | Continuity of Care Document ---
Author Name Unknown Address [address] [facility] [address] [place] [address] [facility] Address [address] [place] [address] Care Team Providers Care Credit Officer Name Role Phone PCP, PATIENT DOES NOT HAVE A Primary Care Physic marcia Unavailable IDRIS MCCLURE [facility] Attending Clinician Sophia Mcclure MD, Sendil [facility]. Attending Clinician Ann Marie Cesar Attending Clinician Carmelita Mcclure MD, [facility]il [facility] Attending Clinician [phone] Doctor Unassigned, [place] Attending Clinician U navailable Payers Payer Name Policy Type Policy Number Effective Date Expirati on Date Source [facility] [id number] 00:00:00 DARS DISABILITY DETERMINATION [facility] [id number] 2015 00:00:00 Problems Condition Name Condition Details Condition Category Status Onset Date Resolution Date Last Treatment Date Treating Clinician Comments Source No known active problems No known active problems Disease [facility] Allergies, Adverse Reactions, Alerts Allergy Name Allergy Type Status Severity Reaction(s) Onset Date Inactive Date Treating Clinician Comments Source Amoxicil nikita Propensi ty to adverse reaction s Active Other - See comments 01-08 00:00: 00 [facility] AMOXICIL NIKITA DRUG INGREDI Active Other-Cmnt 01-08 00:00: 00 [facility] Social History Social Habit Start Date Stop Date Quantity Comments Source History of tobacco use Cigarette Smoker [facility] Sexual orientation [facility] Tobacco use and exposure 2024-08-15 00:00:00 2024-08-15 00:00:00 Smokeless tobacco non-user [facility] History of Social function 2024-08-15 00:00:00 2024-08-15 00:00:00 [facility] Sex 2024-03-06 00:08:00 2024-03-06 00:08:00 Female (finding) [facility] Exposure to SARS-CoV-2 (event) 2021-12-29 00:00:00 2022-01-08 13:16:00 Not sure [facility] Sex Assigned At 1965 00:00:00 1965 00:00:[address] [facility] Smoking Status Start Date Stop Date Source Unknown if ever smoked [facility] Ex-smoker 2024-08-15 00:00:00 2024-08-15 00:00:00 [facility] Medications Ordered Medication Name Filled Medication Name Start Date Stop Date Current Medication? Ordering Clinician Indication Dosage Frequency Signature (SIG) Comments Components Source FLUoxetine 20 mg capsule 01-08 13:27: 13 Yes [id number] 20mg Take 20 mg by mouth daily. [facility] ARIPiprazol e (ABILIFY) 5 mg tablet 01-08 13:27: 13 Yes [id number] 5mg Take 5 mg by mouth daily. [facility] Vital Signs Vital Name Observation Time Observation Value Comments S horaciomina Systolic blood pressure 2024-08-15 15:48:00 118 mm[Hg] [facility] Diastolic blood pressure 2024-08-15 15:48:00 74 mm[Hg] [facility] Heart rate 2024-08-15 15:48:00 82 /min [facility] Respiratory rate 2024-08-15 15:48:00 16 /min [facility] Body height 2024-08-15 15:48:00 170.2 cm [facility] Body weight 2024-08-15 15:48:00 78.472 kg [facility] BMI 2024-08-15 15:48:00 27.10 kg/m2 [facility] Oxygen saturation in Arterial blood by Pulse oximetry 2024-08-15 15:48:00 96 /min [facility] Systolic blood pressure 2022-01-08 18:23:00 101 mm[Hg] [facility] Diastolic blood pressure 2022-01-08 18:23:00 68 mm[Hg] [facility] Heart rate 2022-01-08 18:23:00 73 /min [facility] Respiratory rate 2022-01-08 18:23:00 16 /min [facility] Body height 2022-01-08 18:23:00 170.2 cm [facility] Body weight 2022-01-08 18:23:00 78.954 kg [facility] BMI 2022-01-08 18:23:00 27.26 kg/m2 [facility] Oxygen saturation in Arterial blood by Pulse oximetry 2022-01-08 18:23:00 93 /min [facility] Procedures Procedure Date / Time Performed Performing Clinicia n Source EKG-12 LEAD 2024-08-15 15:56:38 [facility] 2024-03-05 11:51:00 [facility] Encounters Start Date/Time End Date/Time Encounter Type Admission Type Attending Clinicians Care Facility Care Department Encounter ID Source 2024-12-25 11:10:45 2024-12-25 11:10:45 Outpatient [facility] S[facility] [id number] Juan J Espinosa Jose 2024-12-18 15:50:50 2024-12-18 15:50:50 Outpatient SFA WANDA [id number] Juan J Espinosa Jose 2024-12-11 13:23:07 2024-12-11 13:23:07 Outpatient SFA WADNA [id number] Juan J Espinosa Jose 2024-12-06 12:18:13 2024-12-06 12:18:[address] [facility] [id number] Juan J Espinosa Jose 2024-12-05 13:18:09 2024-12-05 13:18:[address] [facility] [id number] Juan J Garcia 2024-11-27 11:13:30 2024-11-27 11:13:[address] [facility] [id number] Juan J Espinosa Jose 2024-11-21 17:17:26 2024-11-21 17:17:[address] [facility] [id number] Juan J Espinosa Jose 2024-11-12 14:43:30 2024-11-12 14:43:[address] [facility] [id number] Juan J Espinosa Jose 2024-10-02 09:12:08 2024-10-02 09:12:08 Outpatient [facility] [id number] Juan J Espinosa Jose 2024-09-27 08:42:51 2024-09-27 08:42:51 Outpatient [place] [id number] Juan J Espinosa Steele 2024-09-10 10:12:10 2024-09-10 10:12:10 Outpatient [facility] [id number] Juan J Espinosa Steele 2024-08-31 10:00:00 2024-08-31 10:00:00 Outpatient R IDRIS MCCLURE [facility] [id number] [facility] 2024-08-28 00:00:00 2024-08-28 16:26:34 Telephone Idris Mcclure [facility] [id number] 350.1.13.10 [id number] [id number] [facility] 2024-08-15 10:00:00 2024-08-15 10:06:19 Outpatient IDRIS GOMEZ [facility] [id number] [facility] 2024-08-15 10:00:00 2024-08-15 10:06:19 Office Visit Idris Mcclure [place] [id number] 350.1.13.10 4.2.7.2.686 [id number] [facility] 2024-08-11 10:32:53 2024-08-11 10:32:53 Outpatient SFA SFA [id number] Juan J Garcia 2024-08-02 15:00:00 2024-08-02 15:00:00 Outpatient IDRIS GOMEZ [facility] [id number] [facility] 2024-07-13 15:18:37 2024-07-13 15:18:37 Outpatient SFA SFA [id number] Juan J Garcia 2024-07-12 13:11:47 2024-07-12 13:11:47 Outpatient SFA SFA [id number] Juan J Garcia 2024-07-06 09:00:00 2024-07-06 09:00:00 Outpatient IDRIS GOMEZ [facility] [id number] [facility] 2024-06-22 13:00:00 2024-06-22 13:00:00 Outpatient R IDRIS MCCLURE [facility] [id number] [facility] 2024-06-20 13:18:06 2024-06-20 13:18:06 Outpatient SFA SFA [id number] Juan J Garcia 2024-06-14 13:25:39 2024-06-14 13:25:39 Outpatient SFA SFA [id number] Juan J Garcia 2024-06-12 11:19:56 2024-06-12 11:19:56 Outpatient SFA SFA [id number] Juan J Garcia 2024-05-17 13:13:05 2024-05-17 13:13:05 Outpatient SFA SFA [id number] Juan J Garcia 2024-05-03 13:20:56 2024-05-03 13:20:56 Outpatient SFA SFA [id number] Juan J Garcia 2024-04-16 09:52:55 2024-04-16 09:52:55 Outpatient SFA SFA [id number] Juan J Garcia 2024-04-09 10:35:57 2024-04-09 10:35:57 Outpatient SFA SFA [id number] Juan J Garcia 2024-03-05 11:33:00 2024-03-05 11:34:00 Outpatient Ann Marie Salazar [facility] [id number] [facility] 2024-03-05 11:33:00 2024-03-05 11:34:[address] [facility] [id number] [facility] 2022-11-05 11:55:53 2022-11-05 11:55:53 Outpatient SFA SFA [id number] Juan J Garcia 2022-10-07 15:20:54 2022-10-07 15:20:54 Outpatient SFA SFA [id number] Juan J Garcia 2022-09-23 15:52:46 2022-09-23 15:52:46 Outpatient SFA SFA [id number] Juan J Garcia 2022-09-17 14:03:24 2022-09-17 14:03:24 Outpatient SFA SFA [id number] Juan J Garcia 2022-09-09 14:49:38 2022-09-09 14:49:38 Outpatient SFA SFA [id number] Juan J Garcia 2022-08-24 15:18:05 2022-08-24 15:18:05 Outpatient SFA SFA [id number] Juan J Garcia 2022-08-17 15:52:31 2022-08-17 15:52:31 Outpatient SFA SFA [id number] Juan J Garcia 2022-08-09 10:54:19 2022-08-09 10:54:19 Outpatient SFA SFA [id number] Juan J Garcia 2022-07-30 08:21:26 2022-07-30 08:21:26 Outpatient SFA SFA [id number] Juan J Garcia 2022-07-26 11:34:14 2022-07-26 11:34:14 Outpatient SFA SFA [id number] Juan J Garcia 2022-07-01 14:09:13 2022-07-01 14:09:[address] [facility] [id number] Juan J Garcia 2022-02-05 16:00:00 2022-02-05 16:00:00 Outpatient R IDRIS MCCLURE [facility] [id number] [facility] 2022-02-05 15:00:00 2022-02-05 15:00:00 Outpatient R IDRIS MCCLURE [facility] [id number] [facility] 2022-01-08 13:00:00 2022-01-08 13:57:19 Office Visit Idris Mcclure [facility] 1..840.114 350.1.13.10 4.2.7.2.686 [id number] [facility] 2022-01-08 13:00:00 2022-01-08 13:57:19 Outpatient R IDRIS MCCLURE [facility] [id number] [facility] 2022-01-08 13:00:00 2022-01-08 13:57:19 Outpatient R IDRIS MCCLURE [facility] [id number] [facility] 2022-01-08 13:00:00 2022-01-08 13:00:00 Outpatient R IDRIS MCCLURE [facility] [id number] [facility] 2022-01-08 00:00:00 2022-01-08 00:00:00 Letter (Out) Doctor Unassigned, [place] [address] 350.1.13.10 4.2.7.2.686 [id number] [facility] 2022-01-08 00:00:00 2022-01-08 00:00:00 Letter (Out) Doctor Unassigned, [place] [address]840.114 350.1.13.10 4.2.7.2.686 [id number] [facility] 2022-01-08 00:00:00 2022-01-08 00:00:00 Orders Only Doctor Unassigned, [place] [facility] [id number] 350.1.13.10 4.2.7.2.686 [id number] [facility] 2021-09-21 00:00:00 2021-09-21 00:00:00 Orders Only Doctor Unassigned, [place] [facility] [id number] 350.1.13.10 4.2.7.2.686 [id number] [facility] Results Test Description Test Time Test Comments Results Result Co mments Source HIV 1/2 4TH GEN, RFLX [id number] 06:41:09* Test Item Value Reference Range Interpretation Comme nts HIV 1/2 4TH GEN, RFLX CONF ( test code = 3514) NON-REACTIVE NON-REACTIVE HEPATITIS PANEL, [id number] 06:41:09* Test Item Value Reference Range Interpretation Comme nts HEPATITIS A IgM (test code = 67240) NON-REACTIVE NON-REACTIVE HEPATITIS B CORE IgM (test code = 4644) NON-REACTIVE NON-REACTIVE HEPATITIS B SURF AG (test code = 2739) NON-REACTIVE NON-REACTIVE HEPATITIS C ANTIBODY (test code = 4675) REACTIVE NON-REACTIVE A INTERPRETATION HEPATITIS A: (test code = 2552) (NOTE) Hepatitis A sero logy shows no evidence of acute hepatitis A. INTERPRETATION HEPATITIS B: (test code = 05766) (NOTE) Hepatitis B sero logy shows no evidence of acute hepatitis B andno indication of exposure to hepatitis B virus in the previous colin eight months. INTERPRETATION HEPATITIS C: (test code = 23771) (NOTE) Hepatitis C sero logy is consistent with exposure to hepatitis Cvirus. The CDC recommends performing a supplemental confirmatory teston initial positive hepatitis C antibody tests. HCV PCR quantitativecan be used to confirm these results on a new sample (See MMWR, 2003;52 RR-3). UNLESS OTHERWISE INDICATED, ALL TESTING PERFORMED AT [facility] [address] [place] [address] POWER ENGINEER: PAPITO LSOAN M.D. CLIA NUMBER [id number] [facility] [place]. [id number] 05:42:05* Test Item Value Reference Range Interpretation Comme nts RPR RESULT (test code = 3501) NON-REACTIVE NON-REACTIVE RPR TITER (test code = 3500) NOT INDIC. TITER NOT INDIC. HCV RNA, PCR [id number] 20:35:44* Test Item Value Reference Range Interpretation Comme nts HCV RNA, PCR QUANT (test code = 4571) NOT DETEC IU/ML HCV VIRAL LOG (test code = 99394) NOT DETEC LOG IU/ML Range of quantitatio n is 15-100,000,000 IU/mL, (1.176-8.000 logIU/mL). Samples with HCV RNA detected below the limit ofquantitation are reported as <15 IU/mL. Assay methodology ispolymerase chain reaction (PCR) using the Hugh Jaime 6800/8800system. The expected range is NOT DETECTED. HEPATITIS PANEL, [id number] 03:26:32* Test Item Value Reference Range Interpretation Comme nts HEPATITIS A TOTAL AB (test code = 2725) NON-REACTIVE NON-REACTIVE HEPATITIS B SURF AG (test code = 2739) NON-REACTIVE NON-REACTIVE HEP B CORE TOTAL AB (test code = 2729) REACTIVE NON-REACTIVE A HEPATITIS B SURFACE AB (test code = 2737) REACTIVE NON-REACTIVE A HEPATITIS C ANTIBODY (test code = 4675) REACTIVE NON-REACTIVE A INTERPRETATION HEPATITIS A: (test code = 2552) (NOTE) Hepatitis A sero logy shows no evidence of past exposure to orcurrent infection with hepatitis A virus; patient not immune tohepatitis A. INTERPRETATION HEPATITIS B: (test code = 11674) (NOTE) Hepatitis B sero logy consistent with past exposure to hepatitis Bvirus with immunity to hepatitis B virus. No evidence of currentacute hepatitis B infection. INTERPRETATION HEPATITIS C: (test code = 00213) (NOTE) Hepatitis C sero logy is consistent with exposure to hepatitis Cvirus. The CDC recommends performing a supplemental confirmatory teston initial positive hepatitis C antibody tests. HCV PCR quantitativecan be used to confirm these results on a new sample (See MMWR, 2003;52 RR-3). UNLESS OTHERWISE INDICATED, ALL TESTING PERFORMED AT [facility] [address] [place] [address] POWER ENGINEER: PAPITO SLOAN M.D. CLIA NUMBER [id number] [facility] [place] [place]. [id number] HIV 1/2 4TH GEN, RFLX [id number] 03:26:32* Test Item Value Reference Range Interpretation Comme nts HIV 1/2 4TH GEN, RFLX CONF ( test code = 3514) NON-REACTIVE NON-REACTIVE COMPREHENSIVE METABOLIC [id number] 02:49:32* Test Item Value Reference Range Interpretation Comme nts GLUCOSE (test code = 2217) 93 MG/DL 70-99 BUN (test code = 2207) 12 MG/DL 6-20 CREATININE (test code = 221) 0.64 MG/DL 0.60-1.30 eGFR (2020 CKD-EPI) (test code = 32925) 104 ML/MIN/1.73 >60 CALC BUN/CREAT (test code = 2235) 19 RATIO 6-28 SODIUM (test code = 223) 140 MEQ/L 133-146 POTASSIUM (test code = 2228) 4.3 MEQ/L 3.5-5.4 CHLORIDE (test code = 2215) 104 MEQ/L 95-107 CARBON DIOXIDE (test code = 2206) 24 MEQ/L 19-31 CALCIUM (test code = 2209) 8.8 MG/DL 8.5-10.5 PROTEIN, TOTAL (test code = 2229) 6.2 G/DL 6.1-8.3 ALBUMIN (test code = 220) 3.7 G/DL 3.5-5.2 CALC GLOBULIN (test code = 2240) 2.5 G/DL 1.9-3.7 CALC A/G RATIO (test code = 223) 1.5 RATIO 1.0-2.6 BILIRUBIN, TOTAL (test code = 220) 0.3 MG/DL <=1.2 ALKALINE PHOSPHATASE (test code = 2204) 58 U/L 40-136 AST (test code = 2218) 27 U/L 9-40 ALT (test code = 2219) 29 U/L 5-40 CBC W/AUTO DIFF WITH [id number] 02:34:33* Test Item Value Reference Range Interpretation Comme nts WBC (test code = 1001) 4.9 K/UL 3.5-11.0 RBC (test code = 1002) 3.95 M/UL 3.80-5.40 HEMOGLOBIN (test code = 1003) 11.9 G/DL 11.5-15.5 HEMATOCRIT (test code = 1004) 36.4 % 34.0-45.0 MCV (test code = 1005) 92.2 fL 80.0-99.0 MCH (test code = 1006) 30.1 PG 25.0-33.0 MCHC (test code = 1007) 32.7 G/DL 31.0-36.0 RDW (test code = 1038) 12.7 % 11.5-15.0 NEUTROPHILS (test code = 1008) 61.3 % LYMPHOCYTES (test code = 1010) 25.9 % MONOCYTES (test code = 1011) 7.5 % EOSINOPHILS (test code = 1012) 4.7 % BASOPHILS (test code = 1013) 0.4 % IMMATURE GRANULOCYTES (test code = 1036) 0.2 % NUCLEATED RBCS (test code = 1065) 0.0 /100 WBC'S See_Comment [Automated messa ge] The system which generated this result transmitted reference range: 0.0. The reference range was not used to interpret this result as normal/abnormal. PLATELET COUNT (test code = 1015) 251 K/UL 130-400 ABSOLUTE NEUTROPHILS (test code = 1066) 3.01 K/UL 1.50-7.50 ABSOLUTE LYMPHOCYTES (test code = 1067) 1.27 K/UL 1.00-4.00 ABSOLUTE MONOCYTES (test code = 1068) 0.37 K/UL 0.20-1.00 ABSOLUTE EOSINOPHILS (test code = 1040) 0.23 K/UL 0.00-0.50 ABSOLUTE BASOPHILS (test code = 1069) 0.02 K/UL 0.00-0.20 ABS IMMATURE GRANULOCYTES (test code = 1020) 0.01 K/UL 0.00-0.10 ABS NUCLEATED RBCS (test code = 13951) 0.00 K/UL 0.00-0.11 XR Chest Pa Lat [id number] 12:35:00 [facility] BR[facility]ANName: YUDY STAHL : 1965 [facility]: YUDY STAHL [address] Phys: Ann Marie Cesar [place] [id number] : 1965 Age: 58 SEX:F [phone] Exam Date: 03/05/24 Status: REG CLI Acct: [id number]: BICRAD Pt Unit #: [id number] Report #: [id number] CC: Ann Marie CesarP : IMAGING SERVICES REPORT Report Status: Signed Order # Category/Exam [id number] RAD/XR Chest Pa Lat STANDARD ([id number]):. Results EXAM: XR Chest Pa Lat STANDARD HISTORY:IMAGCN . SOB/HX OF LUNG CA/FORMER SMOKER Comparison:None FINDINGS: Question hazy opacity in the right lung base. Not definitely seen on the lateral projection. No pneumothorax or pleural effusion. Normal cardiac dimensions and position. IMPRESSION: Hazy right lung base opacity versus overlapping structures. May represent pneumonia, recommend follow-up chest x-ray in 6-8 weeks to ensure resolution. Otherwise consider CT chest. Reported By: Jamaal Maldonado MD Electronically Signed Date/Time: 03/05/24 1229 Technologist: CHAPINCITO Dictated Date/Time: 03/05/24 1227 Transcribed Date/Time:OPIATE, QUANT, [id number] 09:11:26* Test Item Value Reference Range Interpretation Comments MORPHINE INTERP (test code = 27473) Negative MORPHINE QNT (test code = 71523) <50 ng/mL <100 OXYMORPHONE INTERP (test code = 10096) Negative OXYMORPHONE QNT (test code = 58764) <50 ng/mL <100 HYDROMORPHONE INTERP (test code = 325885) Negative HYDROMORPHONE QNT (test code = 108680) <50 ng/mL <100 CODEINE INTERP (test code = 85800) Negative CODEINE QNT (test code = 79977) <50 ng/mL <100 OXYCODONE INTERP (test code = 903649) Negative OXYCODONE QNT (test code = 540336) <50 ng/mL <100 HYDROCODONE INTERP (test code = 54623) Negative HYDROCODONE QNT (test code = 97361) <50 ng/mL <100 6-ACETYLMORPHINE INTERP (test code = 324820) Negative 6-ACETYLMORPHINE QNT (test code = 116841) <10 ng/mL <10 Reference range indicates cutoff for positive result determination.Limit of detection and quantitation (LOD/Q) thresholds may be lowerthan positive cutoff. Results detected above LOD/Q but below cutoffare interpreted as Below Cutoff. Specimen Type: Urine Urine drug and metabolite concentrations are dependent on manyfactors, including patient compliance, drug dosing, dosing interval,individual variation in drug absorption and metabolism, urineconcentration, and limitations of testing. Assay is intended formedical purposes only, not for forensic use. This test was developed and its performance characteristicsdetermined by [facility] ([facility] [place] It has not beencleared or approved by the U.S. Food and Drug Administration (FDA).The FDA has determined that such clearance or approval is notnecessary. This test is used for clinical purposes and should not beregarded as investigational or for research. [facility] [place] is qualified toperform high complexity testing under the Clinical LaboratoryImprovement Amendments (CLIA). TESTING PERFORMED AT [facility] [address] [place] [address], [address], [place] [address] CLIA NO: [id number] BUPRENORPHINE, QUANT, [id number] 09:11:26* Test Item Value Reference Range Interpretation Comments BUPRENORPHINE INTERP (test code = 91916) Positive A BUPRENORPHINE QNT (test code = 06824) >500 ng/mL <5 H Reference range indicates cutoff for positive result determination. Specimen Type: Urine Urine drug and metabolite concentrations are dependent on manyfactors, including patient compliance, drug dosing, dosing interval,individual variation in drug absorption and metabolism, urineconcentration, and limitations of testing. Assay is intended formedical purposes only, not for forensic use. This test was developed and its performance characteristicsdetermined by [facility] ([facility]). It has not beencleared or approved by the U.S. Food and Drug Administration (FDA).The FDA has determined that such clearance or approval is notnecessary. This test is used for clinical purposes and should not beregarded as investigational or for research. [facility] [place] is qualified toperform high complexity testing under the Clinical LaboratoryImprovement Amendments (CLIA). TESTING PERFORMED AT [facility] [address] [facility], [address], [address] [address] CLIA NO: [id number] UNLESS OTHERWISE INDICATED, ALL TESTING PERFORMED [facility] [address] [place] [address] POWER ENGINEER: LAKIA VOSS M.D. CLIA NUMBER [id number] [facility] [place] [place]. [id number] DRUG ABUSE SCREEN 10 REFLEX [id number] 08:14:27* Test Item Value Reference Range Interpretation Comments AMPHETAMINES (test code = 3201) NEGATIVE NEGATIVE BARBITURATES (test code = 3202) NEGATIVE NEGATIVE BENZODIAZEPINES (test code = 3203) NEGATIVE NEGATIVE CANNABINOIDS (test code = 3204) NEGATIVE NEGATIVE COCAINE METABOLITE (test code = 3205) NEGATIVE NEGATIVE OPIATES (test code = 3209) NEGATIVE NEGATIVE OXYCODONE (test code = 85092) SEE REFLEX TESTING NEGATIVE A PHENCYCLIDINE (test code = 3210) NEGATIVE NEGATIVE METHADONE (test code = 3207) NEGATIVE NEGATIVE BUPRENORPHINE (test code = 25706) SEE REFLEX TESTING NEGATIVE A SOURCE (test code = 699039) URINE SEE BELOW FO R THRESHOLDS AND IMPORTANT METHOD NOTES ANALYTE SCREENING CUTOFF CONFIRMATORY CUTOFF ___AMPHETAMINES 500 NG/ML 100 NG/MLBARBITURATES 200 NG/ML 100 NG/MLBENZODIAZEPINES 200 NG/ML 100 NG/MLCANNABINOIDS (THC) 20 NG/ML 15 NG/MLCOCAINE METABOLITES 150 NG/ML 100 NG/MLOPIATE METABOLITES 300 NG/ML 100 NG/MLOXYCODONE 100 NG/ML 100 NG/MLPHENCYCLIDINE (PCP) 25 NG/ML 25 NG/MLMETHADONE 300 NG/ML 100 NG/MLBUPRENORPHINE 5 NG/ML 5 NG/ML NOTE: Screening methodology is qualitative Enzyme Immunoassay.The screening method may be less sensitive for certain medicationsincluding clonazepam and lorazepam in the benzodiazepine assay andtramadol or fentanyl in the opiate assay, amongst others. Patientcompliance, hydration status, timing and dose of medications, drugabsorption and specimen quality may affect screening assay.For clinical discrepancies, consider directed testing for specificcompounds or contact the laboratory within specimen stability toforward for confirmatory testing. This test is specified for medicalpurposes only. It is not valid for forensic use. HCV RNA, PCR [id number] 18:52:50* Test Item Value Reference Range Interpretation Comme nts HCV RNA, PCR QUANT (test code = 4571) NOT DETEC IU/ML HCV VIRAL LOG (test code = 01062) NOT DETEC LOG IU/ML HCV RNA was not detected, indicating no current HCV infection.Reactive HCV antibody result may be due to biologic false positive.In certain situations, follow up HCV RNA testing may be indicated(suspected HCV exposure within past 6 months or clinical evidence ofHCV disease). Range of quantitation is 15-100,000,000 IU/mL, (1.176-8.000 logIU/mL). Samples with HCV RNA detected below the limit ofquantitation are reported as <15 IU/mL. Assay methodology ispolymerase chain reaction (PCR) using the Hugh Jaime 6800/8800system. The expected range is NOT DETECTED. UNLESS OTHERWISE INDICATED, ALL TESTING PERFORMED [facility] [employer] [address] [place] [id number] POWER ENGINEER: LAKIA VOSS M.D. CLIA NUMBER [id number] [place]. [id number] HEPATITIS C REFLEX [id number] 02:39:41* Test Item Value Reference Range Interpretation Comme nts HEPATITIS C ANTIBODY (test c ode = 4675) REACTIVE NON-REACTIVE A Notes Date/Time Note Provider Source 2024-08-28 16:25:[address] Mcclure is currently working on appeal. Pt verbalized understanding. ER Peters RN [facility] 2024-08-28 15:26:37 Yudy Joyner is a 58 year old female Patient is calling in regards to her DSE being denied and states her insurance called and informed her an appeal can be started/more information for why testing is needed can be sent over. Please advise and assist . [phone] (home) ER Love [facility]
[2025-01-09 23:09] LABS: Specific Gravity > 1.030 (1.005-1.030); Urine Bilirubin NEGATIVE (Negative); Urine Blood Negative (Negative); Urine Clarity Clear (Clear); Urine Color Light-Yellow (Yellow); Urine Glucose NEGATIVE (Negative); Urine Ketones NEGATIVE (Negative); Urine Microscopic Reflex YN NO UMIC; Urine Nitrite NEGATIVE (Negative); Urine Protein NEGATIVE (Negative); Urine Urobilinogen Normal (Normal); Urine pH 5.5 (5.0-7.0)
[2025-01-09 23:10] LABS: Specific Gravity > 1.030 (1.005-1.030)
[2025-01-09] MEDS ORDERED: FAMOTIDINE 20 MG/2 ML VIAL IV ONE (23:20)
[2025-01-09] MEDS ORDERED: ONDANSETRON 4 MG/2 ML VIAL ONE (23:20)
[2025-01-09] MEDS ORDERED: LORazepam 2 MG/ML VIAL ONE (23:20)
[2025-01-09 23:33] LABS: Absolute Eosinophils 0.2 K/uL (0-0.5); Absolute Lymphocytes (CBC) 2.3 K/uL (0.7-4.9); Absolute Monocytes 0.3 K/uL (0.1-1.3); Absolute Neutrophil 2.3 K/uL (1.8-8.0); Basophils % 0.8 % (0-1.3); Eosinophils % 4.7 % (0-4.4); Hematocrit 38.1 % (36.0-45.0); Hemoglobin 13.2 g/dL (12.0-15.0); Lymphocytes % 44.3 % (15.3-44.8); MCH 28.9 pg (27.0-35.0); MCHC 34.7 g/dL (32.0-36.0); MCV 83.4 fL (80-100); MPV 8.3 fL (7.6-11.3); Monocytes % 5.6 % (3.3-12.3); Neutrophils % 44.6 % (41.7-73.7); Nucleated Red Blood Cells % 0.1 % (0-0); Platelets 246 thou/uL (152-406); RBC Red Blood Cell Count 4.57 M/uL (3.86-4.86); Red Cell Distribution Width 13.3 % (12.1-15.2)
[2025-01-09 23:47] LABS: Albumin/Globulin Ratio 1.1 (1.1-1.8); Anion Gap 5.6 mEq/L (5.0-15.0); Bilirubin Total 0.3 mg/dL (0.2-1.0); Globulin 3.5 g/dL (2.3-3.5); Potassium 3.6 mEq/L (3.5-5.1); Protein, Total 7.5 g/dL (6.4-8.2)
[2025-01-10 01:11] LABS: Troponin High Sensitivity 3.4 pg/mL (<58.9)
[2025-01-10 01:11] LABS: Barbiturates NEGATIVE (NEGATIVE); Benzodiazepines NEGATIVE (NEGATIVE); Cocaine NEGATIVE (NEGATIVE); METHAMPHETAM NEGATIVE (NEGATIVE); Methadone NEGATIVE (NEGATIVE); Opiates NEGATIVE (NEGATIVE); Phencyclidine NEGATIVE (NEGATIVE); THC Cannibis NEGATIVE (NEGATIVE)
[2025-01-10 01:13] LABS: Magnesium 2.2 mg/dL (1.6-2.4)
--- NOTE | 2025-01-10 01:19 | ER ---
Nurse's Notes [facility] Name: Shawnee Nazario Age: 59 yrs Sex: Female : 1965 Arrival Date: 01/09/2025 Time: 20:24 Bed DX3 Private MD: Diagnosis: Palpitations;Nausea with vomiting, unspecified;Epigastric abdominal tenderness Presentation: 01/09 20:54 Chief complaint: Patient states: N/V X1 DAY AND BACK PAIN X8-10 YRS FLARING UP WORSE dd2 PAST 2 DAYS. Coronavirus screen: At this time, the client does not indicate any symptoms associated with coronavirus-19. Ebola Screen: No symptoms or risks identified at this time. Initial Sepsis Screen: Does the patient meet any 2 criteria? No. Patient's initial sepsis screen is negative. Does the patient have a suspected source of infection? No. Patient's initial sepsis screen is negative. Risk Assessment: Do you want to hurt yourself or someone else? Patient reports no desire to harm self or others. Onset of symptoms was January 08, 2025. 20:54 Method Of Arrival: Ambulatory dd2 20:54 Acuity: PAUL 3 dd2 Triage Assessment: 20:58 General: Appears in no apparent distress. uncomfortable, Behavior is calm, cooperative, dd2 appropriate for age. Pain: Complains of pain in low back area Pain does not radiate. Pain currently is 9 out of 10 on a pain scale. GI: Abdomen is non-distended, Abd is soft and non tender X 4 quads. Reports nausea, vomiting, since 01/08/2025. Historical: - Allergies: 20:58 Amoxicillin; dd2 20:58 PENICILLINS; dd2 - PMHx: 20:58 Anxiety; Arthritis; Bipolar disorder; Depression; insomnia; PTSD; dd2 - PSHx: 20:58 section; dd2 - Immunization history:: Adult Immunizations up to date, Client reports receiving the 2nd dose of the Covid vaccine, Client reports receiving the 1st dose of the Covid vaccine, Flu vaccine is up to date. - Infectious Disease History:: Denies. - Social history:: Smoking status: Reported history of juuling and/or vaping. Screenin:30 [facility] ED Fall Risk Assessment (Adult) History of falling in the last 3 months, kb3 including since admission No falls in past 3 months (0 pts) Confusion or Disorientation No (0 pts) Intoxicated or Sedated No (0 pts) Impaired Gait No (0 pts) Mobility Assist Device Used No (0 pt) Altered Elimination No (0 pt) Score/Fall Risk Level 0 - 2 = Low Risk Oriented to surroundings. Abuse screen: Denies threats or abuse. Denies injuries from another. Nutritional screening: No deficits noted. Tuberculosis screening: No symptoms or risk factors identified. Assessment: 22:30 General: Appears in no apparent distress. Behavior is calm, cooperative. GI: Reports kb3 lower abdominal pain, upper abdominal pain, nausea. 01/10 01:00 Reassessment: Patient appears in no apparent distress at this time. Patient and/or kb3 family updated on plan of care and expected duration. Pain level reassessed. Patient states feeling better. Patient states symptoms have improved. GI:. Vital Signs: 01/09 20:54 BP 116 / 98; Pulse 75; Resp 16; Temp 98.4; Pulse Ox 99% on R/A; Weight 68.49 kg; Height dd2 5 ft. 7 in. ; Pain 9/10; 01/10 01:25 BP 121 / 71; Pulse 65; Resp 18; Pulse Ox 100% ; kb3 01/09 20:54 Body Mass Index 23.65 (68.49 kg, 170.18 cm) dd2 01/09 20:54 Pain Scale: Adult dd2 ED Course: 01/09 20:45 Patient arrived in ED. gm2 20:49 Danny Dennis PA is PHCP. cp 20:49 Ananda Ross MD is Attending Physician. cp 20:58 Triage completed. dd2 20:58 Arm band placed on left wrist. dd2 22:30 Patient has correct armband on for positive identification. Provided Education on: Plan kb3 of care. 23:00 Missed attempt(s): 20 gauge in left antecubital area. Bleeding controlled, band aid rk3 applied, catheter tip intact. 23:06 US Abdomen Limited: liver/gallbladder In Process Unspecified. EDMS 23:10 No provider procedures requiring assistance completed. Inserted saline lock: 22 gauge kb3 in left antecubital area, using aseptic technique. 23:50 XRAY Chest (1 view) In Process Unspecified. EDMS 01/10 01:15 IV discontinued, intact, bleeding controlled, No redness/swelling at site. kb3 Administered Medications: 01/09 23:25 Drug: Ondansetron IVP 4 mg IVP once; over 2 minutes Route: IVP; Site: left antecubital; vc1 23:25 Drug: Famotidine IVP 20 mg IVP once; dilute with 10 mL 0.9% NaCl; give over 2 minutes vc1 Route: IVP; Site: left antecubital; 23:38 Drug: Ativan IVP 1 mg IVP once Route: IVP; Site: left antecubital; vc1 Medication: 22:30 VIS not applicable for this client. kb3 Outcome: 01/10 01:18 Discharge ordered by . cindi 01:25 Discharged to home ambulatory, kb3 01:25 Condition: improved 01:25 Discharge instructions given to patient, Instructed on discharge instructions, follow up and referral plans. medication usage, Demonstrated understanding of instructions, follow-up care, medications, Prescriptions given X 2, 01:32 Patient left the ED. kb3 Signatures: Dispatcher [employer] EDMS Danny Dennis PA PA cp Calcote, Vanessa RN RN vc1 Lurdes Grimaldo RN RN kb3 Aniyah Oliver gm2 VALERIANO WOODS RN RN dd2 Diamond Bell3
--- NOTE | 2025-01-10 01:19 | EDPHYS ---
Physician Documentation [facility] Name: Shawnee Nazario Age: 59 yrs Sex: Female : 1965 Arrival Date: 01/09/2025 Time: 20:24 Bed DX3 Private MD: ED Physician Ananda Ross HPI: 01/09 22:52 This 59 yrs old Female presents to ER via Ambulatory with complaints of Nausea/Vomiting.cp 22:52 The patient presents to the emergency department with nausea, that is moderate, cp abdominal pain, of the epigastric area, described as like a "rock" sitting on abdomen, and does not radiate. Possible causes: increased stress. Associated signs and symptoms: Pertinent positives: heart palpitations, Pertinent negatives: constipation, diarrhea, fever. Historical: - Allergies: 20:58 Amoxicillin; dd2 20:58 PENICILLINS; dd2 - PMHx: 20:58 Anxiety; Arthritis; Bipolar disorder; Depression; insomnia; PTSD; dd2 - PSHx: 20:58 section; dd2 - Immunization history:: Adult Immunizations up to date, Client reports receiving the 2nd dose of the Covid vaccine, Client reports receiving the 1st dose of the Covid vaccine, Flu vaccine is up to date. - Infectious Disease History:: Denies. - Social history:: Smoking status: Reported history of juuling and/or vaping. ROS: 22:54 Eyes: Negative for injury, pain, redness, and discharge, cp 22:54 Constitutional: Negative for body aches, chills, fever, poor PO intake, 22:54 ENT: Negative for drainage from ear(s), ear pain, sore throat, difficulty swallowing, difficulty handling secretions, 22:54 Cardiovascular: Positive for palpitations, Negative for chest pain, edema, 22:54 Respiratory: Negative for cough, shortness of breath, wheezing, 22:54 Abdomen/GI: Positive for abdominal pain, nausea, of the epigastric area, Negative for diarrhea, constipation, active vomiting, 22:54 Back: Positive for chronic back pain, 22:54 Neuro: Negative for altered mental status, dizziness, headache, numbness, syncope, weakness, 22:54 All other systems are negative, Exam: 22:56 Head/Face: Normocephalic, atraumatic. cp 22:56 Constitutional: The patient appears in no acute distress, alert, awake, non-diaphoretic, non-toxic, well developed, well nourished, uncomfortable, 22:56 Eyes: Periorbital structures: appear normal, Conjunctiva: normal, no exudate, no injection, Sclera: no appreciated abnormality, Lids and lashes: appear normal, bilaterally, 22:56 ENT: External ear(s): are unremarkable, Nose: is normal, Mouth: Lips: moist, Oral mucosa: moist, Posterior pharynx: Airway: no evidence of obstruction, patent, 22:56 Chest/axilla: Inspection: normal, 22:56 Cardiovascular: Rate: normal, Rhythm: regular, Edema: is not appreciated, JVD: is not appreciated, 22:56 Respiratory: the patient does not display signs of respiratory distress, Respirations: normal, no use of accessory muscles, no retractions, labored breathing, is not present, Breath sounds: are clear throughout, no decreased breath sounds, no stridor, no wheezing, 22:56 Abdomen/GI: Inspection: abdomen appears normal, Bowel sounds: active, all quadrants, Palpation: soft, in all quadrants, mild abdominal tenderness, in the epigastric area, rebound tenderness, is not appreciated, involuntary guarding, is not appreciated, 22:56 Back: CVA tenderness, is absent, 22:56 Neuro: Orientation: to person, place \\T\\ time. Mentation: is normal, Motor: moves all fours, strength is normal, Gait: is steady, 23:32 ECG was reviewed by the Attending Physician. Vital Signs: 20:54 BP 116 / 98; Pulse 75; Resp 16; Temp 98.4; Pulse Ox 99% on R/A; Weight 68.49 kg; Height dd2 5 ft. 7 in. ; Pain 9/10; 01/10 01:25 BP 121 / 71; Pulse 65; Resp 18; Pulse Ox 100% ; kb3 01/09 20:54 Body Mass Index 23.65 (68.49 kg, 170.18 cm) dd2 01/09 20:54 Pain Scale: Adult dd2 MDM: 01/09 21:01 Medical Screening Exam initiated cp 01/10 00:00 Differential diagnosis: gastritis, cholecystitis, pancreatitis, viral gastroenteritis, cp gastroenteritis, anxiety, acute LA. 01:18 Data reviewed: vital signs, nurses notes, lab test result(s), EKG, radiologic studies, cp plain films, ultrasound, and as a result, I will discharge patient. 01:18 I considered the following discharge prescriptions or medication management in the emergency department Medications were administered in the Emergency Department. See MAR. 01:18 Independent interpretation of the following test(s) in the Emergency Department EKG: See my EKG interpretation above. Counseling: I had a detailed discussion with the patient and/or guardian regarding the historical points, exam findings, and any diagnostic results supporting the discharge/admit diagnosis, lab results, radiology results, to return to the emergency department if symptoms worsen or persist or if there are any questions or concerns that arise at home. Response to treatment: the patient's symptoms have markedly improved after treatment, and as a result, I will discharge patient. 01/09 21:07 Order name: CBC with Diff; Complete Time: 23:53 01/09 23:54 Interpretation: Normal except: EOSINOPHIL % 4.7. 01/09 21:07 Order name: CMP; Complete Time: 23:53 01/09 23:54 Interpretation: Normal except: ALK 44. 01/09 21:07 Order name: Lipase; Complete Time: 23:53 01/09 21:07 Order name: Test, Urine; Complete Time: 23:53 01/09 23:54 Interpretation: Urine SG > 1.030; Reviewed. 01/09 21:07 Order name: Urinalysis w/ reflexes; Complete Time: 23:53 01/09 23:54 Interpretation: Normal except: Urine SG > 1.030. 01/09 22:51 Order name: Magnesium; Complete Time: 01:17 cp 01/09 22:51 Order name: Troponin HS; Complete Time: 01:17 01/09 22:54 Order name: UDS; Complete Time: 01:17 01/09 22:51 Order name: XRAY Chest (1 view) 01/09 22:52 Order name: US Abdomen Limited: liver/gallbladder 01/09 22:51 Order name: EKG; Complete Time: 22:51 01/09 21:07 Order name: IV Saline Lock; Complete Time: 23:55 01/09 21:07 Order name: Labs collected and sent; Complete Time: 23:55 04/30 22:51 Order name: Cardiac monitoring; Complete Time: 23:18 cp 01/09 22:51 Order name: EKG - Nurse/Tech; Complete Time: 23:18 cp 01/09 22:51 Order name: O2 Per Protocol; Complete Time: 23:18 cp 01/09 22:51 Order name: O2 Sat Monitoring; Complete Time: 23:18 cp EC/30 23:32 Rate is 79 beats/min. Rhythm is regular. ND interval is normal. QRS interval is normal. cp QT interval is normal. T waves are Inverted in lead aVR. Interpreted by me. Reviewed by me. Administered Medications: 23:25 Drug: Ondansetron IVP 4 mg IVP once; over 2 minutes Route: IVP; Site: left antecubital; vc1 23:25 Drug: Famotidine IVP 20 mg IVP once; dilute with 10 mL 0.9% NaCl; give over 2 minutes vc1 Route: IVP; Site: left antecubital; 23:38 Drug: Ativan IVP 1 mg IVP once Route: IVP; Site: left antecubital; vc1 Disposition: 01/10 07:00 Co-signature as Attending Physician, Ananda Ross MD I agree with the assessment sp4 and plan of care. I reviewed the patient's care provided by the Advanced Practice Provider and agree with the diagnosis and treatment plan. Disposition Summary: 01/10/25 01:18 Discharge Ordered Notes: Location: Home cp Problem: new cp Symptoms: have improved cp Condition: Stable cp Diagnosis - Palpitations cp - Nausea with vomiting, unspecified cp - Epigastric abdominal tenderness cp Followup: cp - With: Private Physician - When: 1 - 2 days - Reason: Recheck today's complaints Discharge Instructions: - Discharge Summary Sheet cp - Nausea and Vomiting, Adult cp - Palpitations cp - Aspirin and Your Heart cp - Ambulatory Cardiac Monitoring cp - Managing Anxiety, Adult cp Forms: - Medication Reconciliation Form cp - Antibiotic Education cp - Prescription Opioid Use cp - Patient Portal Instructions cp - Leadership Thank You Letter cp Prescriptions: - Pepcid 20 mg Oral Tablet - take 1 tablet ORAL route every 12 hours for 10 days; 20 tablet; Refills: 0, cp Product Selection Permitted - Hydralazine 25 mg Oral tablet - take 1 tablet ORAL route 4 times per day with food. take as needed for anxiety; cp 30 tablet; Refills: 0, Product Selection Permitted - ondansetron 8 mg Oral Tablet,disintegrating - take 1 tablet ORAL route every 12 hours; 15 tablet; Refills: 0, Product cp Selection Permitted Signatures: Dispatcher [employer] EDMS Danny Dennis PA PA cp Calcote, Vanessa RN RN vc1 Ananda Ross MD MD sp4 VALERIANO WOODS RN RN dd2 Corrections: (The following items were deleted from the chart) 01/09 22:51 22:51 MAGNESIUM+C.LAB.BRZ ordered. EDMS EDMS 22:51 22:51 PROTIME (+INR)+COAG.LAB.BRZ ordered. EDMS EDMS 22:51 22:51 Troponin High Sensitivity+C.LAB.BRZ ordered. EDMS EDMS
[2025-01-10 02:56] VITALS: BP 116/98; TEMP 98.4; O2SAT 99
--- NOTE | 2025-01-10 05:44 | RAD REPORT ---
EXAM: XR Chest, 1 View CLINICAL HISTORY: The patient is 59 years old and is Female; epigastric pain TECHNIQUE: Frontal view of the chest. COMPARISON: No relevant prior studies available. FINDINGS: LUNGS: Unremarkable. No consolidation. PLEURAL SPACE: Unremarkable. No pneumothorax. HEART: Unremarkable. No cardiomegaly. MEDIASTINUM: Unremarkable. Normal mediastinal contour. BONES/JOINTS: Unremarkable. No acute fracture. UPPER ABDOMEN: Unremarkable as visualized. IMPRESSION: No acute cardiopulmonary process. Electronically signed by: Miroslava Waldron MD 01/10/2025 12:10 AM CDT RP Due to temporary technical issues with the PACS/marker.to reporting system, reports are being lucio d by the in-house radiologist without review as a courtesy to ensure prompt reporting the interpreting radiologist is fully responsible for the content of the report. Transcribed Date/Time: 01/10/2025 5:44 AM
--- NOTE | 2025-01-10 06:39 | RAD REPORT ---
EXAM: US Abdomen Limited, Gallbladder CLINICAL HISTORY: The patient is 59 years old and is Female; EPIGASTRIC PAIN TECHNIQUE: Real-time ultrasound of the right upper quadrant with image documentation. COMPARISON: No relevant prior studies available. FINDINGS: GALLBLADDER: The gallbladder is contracted. No gallstones are noted. There is no gallbladder wall thickening. There is a negative sonographic Garza sign. COMMON BILE DUCT: Unremarkable as visualized. No stones. No dilation. IMPRESSION: Unremarkable sonographic appearance of the gallbladder. Electronically signed by: Miroslava Waldron MD 01/09/2025 11:36 PM CDT RP Due to temporary technical issues with the PACS/[employer] reporting system, reports are being lucio d by the in-house radiologist without review as a courtesy to ensure prompt reporting the interpreting radiologist is fully responsible for the content of the report. Transcribed Date/Time: 01/10/2025 6:38 AM
--- NOTE | 2025-01-10 11:53 | EKG ---
Test Date: 2025-01-09 Test Time: 23:29:25 Medical Insurance Collector: DAVID MEASUREMENT RESULTS: Intervals: Rate: 79 DC: 172 QRSD: 86 QT: 370 QTc: 424 [place]: P: 84 DC: 172 QRS: 71 T: 63 INTERPRETIVE STATEMENTS: Normal sinus rhythm with sinus arrhythmia Normal ECG No previous ECG available for comparison Electronically Signed On 01-10-25 11:51:59 CDT by Charles Padgett
== END 2025-01-10 01:32 | disposition home or self-care (01) ==
LOC: ER 20:24
DX: R00.2 Palpitations (principal); R11.2 Nausea with vomiting, unspecified; R10.816 Epigastric abdominal tenderness
CPT/HCPCS: 93005; 85025; 36415; 83735; 81025; 81003; 84484; 83690; 80053; 80307; 71045; 76705; 96375; 96374; 99284; J2405